=== PATIENT | male | born 1960 | race Caucasian/White ===

== ENCOUNTER → 2017-08-31 | Outpatient (CLI) | payer OTHER, BC ==
[2017-08-31 09:28] LABS: BASO # 0.1 10^3/uL (0.0-0.2); BASO % 2.4 % (0.0-1.0); EOS # 0.2 10^3/uL (0.0-0.50); EOS % 3.1 % (0.0-3.0); IMMATURE GRANULOCYTE % 0.5 % (0-0); LYMPH # 1.8 10^3/uL (1.5-4.5); LYMPH % 31.1 % (24.0-44.0); MEAN CORPUSCULAR HEMOGLOBIN 30.1 pg (27.0-33.0); MEAN CORPUSCULAR HGB CONC 33.8 g/dl (32.0-36.5); MEAN CORPUSCULAR VOLUME 88.8 fl (80.0-96.0); MONO # 0.6 10^3/uL (0.0-0.8); MONO % 10.5 % (0.0-5.0); NEUTROPHILS # 3.1 10^3/uL (1.8-7.7); NEUTROPHILS % 52.4 % (36.0-66.0); PLATELET COUNT, AUTOMATED 226 10^3/uL (150-450); RED CELL DISTRIBUTION WIDTH 12.1 % (11.5-14.5); WHITE BLOOD COUNT 5.9 10^3/uL (4.0-10.0)
[2017-08-31 09:54] LABS: ALBUMIN 3.7 GM/DL (3.2-5.2); ALBUMIN/GLOBULIN RATIO 1.09 (1.00-1.93); ALKALINE PHOSPHATASE 59 U/L (45-117); ALT/SGPT 41 U/L (12-78); ANION GAP 6 MEQ/L (8-16); AST/SGOT 22 U/L (7-37); BILIRUBIN,TOTAL 0.6 MG/DL (0.2-1.0); BLOOD UREA NITROGEN 12 MG/DL (7-18); CALCIUM LEVEL 9.3 MG/DL (8.5-10.1); CARBON DIOXIDE LEVEL 31 MEQ/L (21-32); CHLORIDE LEVEL 101 MEQ/L (98-107); CHOLESTEROL LEVEL 153 MG/DL (<200); CREATININE FOR GFR 1.09 MG/DL (0.70-1.30); GLOMERULAR FILTRATION RATE > 60.0 (>56); GLUCOSE, FASTING 133 MG/DL (70-105); POTASSIUM SERUM 4.5 MEQ/L (3.5-5.1); SODIUM LEVEL 138 MEQ/L (136-145); TOTAL PROTEIN 7.1 GM/DL (6.4-8.2); TRIGLYCERIDES LEVEL 317 MG/DL (<150)
== END ==
LOC: M WUC 08:13
PROVIDERS: ATTEND Family Medicine
DX: E11.65 Type 2 diabetes mellitus with hyperglycemia (principal)

== ENCOUNTER → 2018-03-16 | Outpatient (CLI) | payer OTHER, BC ==
[2018-03-16 09:27] LABS: ALBUMIN 3.6 GM/DL (3.2-5.2); ALBUMIN/GLOBULIN RATIO 1.06 (1.00-1.93); ALKALINE PHOSPHATASE 65 U/L (45-117); ALT/SGPT 50 U/L (12-78); ANION GAP 5 MEQ/L (8-16); AST/SGOT 25 U/L (7-37); BILIRUBIN,TOTAL 0.5 MG/DL (0.2-1.0); BLOOD UREA NITROGEN 14 MG/DL (7-18); CALCIUM LEVEL 8.6 MG/DL (8.5-10.1); CARBON DIOXIDE LEVEL 29 MEQ/L (21-32); CHLORIDE LEVEL 108 MEQ/L (98-107); CHOLESTEROL LEVEL 128 MG/DL (<200); CHOLESTEROL RISK RATIO 4.129 (<5); CREATININE FOR GFR 0.91 MG/DL (0.70-1.30); GLOMERULAR FILTRATION RATE > 60.0 (>56); GLUCOSE, FASTING 128 MG/DL (70-100); HDL CHOLESTEROL 31 MG/DL (>40); LDL CHOLESTEROL 38.4 MG/DL (<100); NON-HDL-C 97 MG/DL; POTASSIUM SERUM 4.6 MEQ/L (3.5-5.1); SODIUM LEVEL 142 MEQ/L (136-145); TRIGLYCERIDES LEVEL 293 MG/DL (<150)
[2018-03-16 10:21] LABS: ESTIMATED AVERAGE GLUCOSE 143 MG/DL (60-110); HEMOGLOBIN A1c 6.6 %
[2018-03-16 11:20] LABS: MALB URINE SIEMENS 16.2 MG/L
== END ==
LOC: M WUC 08:23
DX: E11.69 Type 2 diabetes mellitus with other specified complication (principal)

== ENCOUNTER → 2018-04-11 | Outpatient (CLI) | payer BC, OTHER | LOC: M RAD 08:45 | DX: F17.210 Nicotine dependence, cigarettes, uncomplicated (principal); Z12.2 Encounter for screening for malignant neoplasm of respiratory organs | CPT/HCPCS: G0297 ==

== ENCOUNTER → 2018-09-21 | Outpatient (CLI) | payer OTHER, BC ==
[2018-09-21 11:18] LABS: ESTIMATED AVERAGE GLUCOSE 154 MG/DL (60-110)
[2018-09-21 11:24] LABS: ALBUMIN 3.8 GM/DL (3.2-5.2); ALBUMIN/GLOBULIN RATIO 1.15 (1.00-1.93); ALKALINE PHOSPHATASE 68 U/L (45-117); ALT/SGPT 43 U/L (12-78); ANION GAP 10 MEQ/L (8-16); AST/SGOT 21 U/L (7-37); BILIRUBIN,TOTAL 0.5 MG/DL (0.2-1.0); BLOOD UREA NITROGEN 17 MG/DL (7-18); CALCIUM LEVEL 9.1 MG/DL (8.8-10.2); CARBON DIOXIDE LEVEL 28 MEQ/L (21-32); CHLORIDE LEVEL 102 MEQ/L (98-107); GLOMERULAR FILTRATION RATE > 60.0 (>49); GLUCOSE, FASTING 125 MG/DL (70-100); POTASSIUM SERUM 4.6 MEQ/L (3.5-5.1); SODIUM LEVEL 140 MEQ/L (136-145); TOTAL PROTEIN 7.1 GM/DL (6.4-8.2)
== END ==
LOC: M WUC 09:31
DX: E11.69 Type 2 diabetes mellitus with other specified complication (principal)
CPT/HCPCS: 80053

== ENCOUNTER → 2018-12-18 | Outpatient (CLI) | payer BC, OTHER ==
--- NOTE | 2018-12-18 09:27 | REP ---
NONCONTRAST CHEST CT: HISTORY: Abnormal lung field findings. Comparison CT studies of the chest are reviewed from June 13, 2018 and April 11, 2018. CT FINDINGS: There are two small parenchymal calcifications in the left lobe of the thyroid unchanged. No mediastinal adenopathy is seen. There are granulomatous calcified clint residuals in the right hilus. A calcified granuloma is seen in the right upper lobe of the lung. These findings are unchanged. There is moderate diffuse fatty infiltration of the liver. This is unchanged. No adrenal lesion is seen. Visualized upper abdominal structures are otherwise unremarkable. No pleural or pericardial effusion is seen. No bony abnormality is appreciated. There is mild subpleural fibrosis pattern in the right lower lobe posteriorly and medially. This is less prominent than on the June 13, 2018 study and somewhat improved compared to the April 04, 2018 exam as well. There are scattered stable tiny nodules in the upper lobes bilaterally unchanged. No new pulmonary nodule is appreciated. No progressive change is appreciated. IMPRESSION: Patchy subpleural interstitial and ground-glass changes in the right lower lobe appear improved. Granulomatous calcific residuals. Stable tiny nodular opacities. Moderate diffuse fatty infiltration of the liver. Electronically Signed by Jeff Fajardo MD 12/18/2018 11:09 A
== END ==
LOC: M RAD 06:47
PROVIDERS: ATTEND Internal Medicine Pulmonary Disease
DX: R91.8 Other nonspecific abnormal finding of lung field (principal)

== ENCOUNTER → 2019-01-01 | Outpatient (CLI) | payer OTHER, BC ==
[2019-01-01 17:03] LABS: BLOOD UREA NITROGEN 11 MG/DL (7-18); CALCIUM LEVEL 8.8 MG/DL (8.8-10.2); CARBON DIOXIDE LEVEL 30 MEQ/L (21-32); CHLORIDE LEVEL 103 MEQ/L (98-107); CREATININE FOR GFR 0.91 MG/DL (0.70-1.30); GLOMERULAR FILTRATION RATE > 60.0 (>49); GLUCOSE, FASTING 96 MG/DL (70-100); POTASSIUM SERUM 4.2 MEQ/L (3.5-5.1); SODIUM LEVEL 139 MEQ/L (136-145)
[2019-01-01 17:34] LABS: HEMOGLOBIN A1c 6.4 %
== END ==
LOC: M WUC 14:29
PROVIDERS: ATTEND Family Medicine
DX: E11.69 Type 2 diabetes mellitus with other specified complication (principal)

== ENCOUNTER → 2019-06-27 | Outpatient (CLI) | payer OTHER, BC ==
[2019-06-27 12:12] LABS: BASO # 0.2 10^3/uL (0.0-0.2); BASO % 2.6 % (0.0-1.0); EOS # 0.2 10^3/uL (0.0-0.5); HEMATOCRIT 45.1 % (42.0-52.0); HEMOGLOBIN 15.1 g/dl (13.5-17.5); LYMPH # 1.6 10^3/uL (1.5-5.0); LYMPH % 28.8 % (24.0-44.0); MEAN CORPUSCULAR HEMOGLOBIN 29.9 pg (27.0-33.0); MEAN CORPUSCULAR HGB CONC 33.5 g/dl (32.0-36.5); MEAN CORPUSCULAR VOLUME 89.3 fl (80.0-96.0); MONO # 0.6 10^3/uL (0.0-0.8); MONO % 10.4 % (0.0-5.0); NEUTROPHILS # 3.1 10^3/uL (1.5-8.5); NEUTROPHILS % 54.8 % (36.0-66.0); PLATELET COUNT, AUTOMATED 240 10^3/uL (150-450); RED BLOOD COUNT 5.05 10^6/uL (4.30-6.10); WHITE BLOOD COUNT 5.7 10^3/uL (4.0-10.0)
[2019-06-27 12:22] LABS: ALBUMIN 3.7 GM/DL (3.2-5.2); ALT/SGPT 41 U/L (12-78); BILIRUBIN,TOTAL 0.6 MG/DL (0.2-1.0); BLOOD UREA NITROGEN 11 MG/DL (7-18); CALCIUM LEVEL 9.4 MG/DL (8.8-10.2); CARBON DIOXIDE LEVEL 29 MEQ/L (21-32); CHLORIDE LEVEL 105 MEQ/L (98-107); CHOLESTEROL LEVEL 120 MG/DL (<200); CREATININE FOR GFR 1.02 MG/DL (0.70-1.30); GLOMERULAR FILTRATION RATE > 60.0 (>49); GLUCOSE, FASTING 120 MG/DL (70-100); HDL CHOLESTEROL 32 MG/DL (>40); LDL CHOLESTEROL 36 MG/DL (<100); NON-HDL-C 88 MG/DL; POTASSIUM SERUM 4.7 MEQ/L (3.5-5.1); SODIUM LEVEL 143 MEQ/L (136-145); TOTAL PROTEIN 6.9 GM/DL (6.4-8.2); TRIGLYCERIDES LEVEL 261 MG/DL (<150)
[2019-06-27 12:50] LABS: MALB URINE SIEMENS 30.2 MG/L; MAU/CREAT RATIO 10.1 MCG/MG (0.0-30.0)
[2019-06-27 13:20] LABS: HEMOGLOBIN A1c 6.9 %
== END ==
LOC: M WUC 08:10
PROVIDERS: ATTEND Family Medicine
DX: E11.69 Type 2 diabetes mellitus with other specified complication (principal)

== ENCOUNTER → 2019-06-27 | Outpatient (CLI) | payer BC, OTHER ==
--- NOTE | 2019-06-27 13:49 | REP ---
CT CHEST WITHOUT CONTRAST: HISTORY: "Other nonspecific abnormal finding of the lung field". COMPARISON STUDY: CT studies of the chest are reviewed from December 18, 2018, June 13, 2018, and April 11, 2018. CT FINDINGS: There is moderate fatty infiltration of the liver again seen essentially diffusely. No adrenal lesion is seen. The visualized upper abdominal structures are otherwise unremarkable. There is no evidence of pleural or pericardial effusion. There is a granulomatous calcification again noted in the right upper lobe and there is a granulomatous lymph node calcification in the right hilus unchanged. There is a tiny stable 4 mm nodular opacity in the left upper lobe on page 24 of 118 in series to one of today's study. There is another tiny 4 mm nodular opacity in the left upper lobe on page 46 unchanged. There is an elongate paraspinal ground-glass opacity/fibrosis pattern in the posterior medial the right lower lobe, medial basal segment. This is improved from the original CT study of April 11, 2018 and with respect to the May 2018 study. These are associated with fairly prominent right lateral and anterolateral paravertebral osteophytes and may be secondary fibrosis. There is no solid component. Exam is otherwise unremarkable. IMPRESSION: Stable pulmonary parenchymal findings. Electronically Signed by Jeff Fajardo MD 06/27/2019 03:12 P
== END ==
LOC: M RAD 10:08
PROVIDERS: ATTEND Internal Medicine Pulmonary Disease
DX: R91.8 Other nonspecific abnormal finding of lung field (principal); K76.0 Fatty (change of) liver, not elsewhere classified

== ENCOUNTER → 2019-10-01 | Outpatient (CLI) | payer OTHER, BC ==
[2019-10-01 13:07] LABS: HEMOGLOBIN A1c 6.8 %
== END ==
LOC: M WUC 09:13
PROVIDERS: ATTEND Family Medicine
DX: E11.69 Type 2 diabetes mellitus with other specified complication (principal)

== ENCOUNTER 2019-11-21 09:57 | Day surgery (SDC) | payer BC, OTHER ==
[~2019-11-21] VITALS: Ht 175.3 cm; Wt 122.5 kg
[~2019-11-21 09:57] MED LIST: AMLO5TAB6 PO; LISI-538 PO; METF-791 PO; METO1TAB33 PO; NS 1,000 ML IV ONE; SIMV20TA22 PO
[2019-11-21] MEDS ORDERED: propofoL 200 MG/20 ML VIAL As Ordered ONE ×2 (10:54→11:17)
[2019-11-21] MEDS ORDERED: LIDOCAINE 2% INJ 100 MG/5 ML SDV (FOR ANES.) As Ordered ONE (10:54)
--- NOTE | 2019-11-21 11:21 | ROOR ---
Patient Name: Roddy Bill Procedure Date: 11/21/2019 10:50 AM Date of : 1960 Age: 59 Room: [facility] Gender: Male Note Status: Finalized Procedure: Colonoscopy Indications: High risk colon cancer surveillance: Personal history of colonic polyps Providers: Israel Le Jr, MD Referring MD: Lisha Ortez MD Requesting Provider: Medicines: Propofol per Anesthesia Complications: No immediate complications. Procedure: Pre-Anesthesia Assessment: - Prior to the procedure, a History and Physical was performed, and patient medications and allergies were reviewed. The patient is competent. The risks and benefits of the procedure and the sedation options and risks were discussed with the patient. All questions were answered and informed consent was obtained. Patient identification and proposed procedure were verified by the physician and the nurse in the pre-procedure area and in the procedure room. Mental Status Examination: alert and oriented. Airway Examination: normal oropharyngeal airway and neck mobility. Respiratory Examination: clear to auscultation. CV Examination: normal. ASA Grade Assessment: II - A patient with mild systemic disease. After reviewing the risks and benefits, the patient was deemed in satisfactory condition to undergo the procedure. The anesthesia plan was to use moderate sedation / analgesia (conscious sedation). Immediately prior to administration of medications, the patient was re-assessed for adequacy to receive sedatives. The heart rate, respiratory rate, oxygen saturations, blood pressure, adequacy of pulmonary ventilation, and response to care were monitored throughout the procedure. The physical status of the patient was re-assessed after the procedure. The Colonoscope was introduced through the anus and advanced to the cecum, identified by appendiceal orifice and ileocecal valve. The colonoscopy was performed without difficulty. The patient tolerated the procedure well. The quality of the bowel preparation was adequate. Findings: The cecum, appendiceal orifice and ileocecal valve appeared normal. Seven polyps were found in the rectum, sigmoid colon, descending colon and transverse colon. The polyps were small in size. These polyps were removed with a hot snare. Resection was complete, but the polyp tissue was only partially retrieved. Multiple small and large-mouthed diverticula were found in the sigmoid colon. Impression: - The cecum, appendiceal orifice and ileocecal valve are normal. - Seven small polyps in the rectum, in the sigmoid colon, in the descending colon and in the transverse colon, removed with a hot snare. Complete resection. Partial retrieval. - Diverticulosis in the sigmoid colon. Recommendation: - Discharge patient to home (ambulatory). - Repeat colonoscopy in 5 years for surveillance. Israel Le MD Israel Le Jr, MD 11/21/2019 11:20:45 AM Electronically signed by Israel Le Jr, MD Number of Addenda: 0 Note Initiated On: 11/21/2019 10:50 AM Estimated Blood Loss: Estimated blood loss: none.
[2019-11-21 12:35] VITALS: BP 190/95
== END 2019-11-21 13:17 | disposition home or self-care (01) ==
LOC: M OPP 09:57
PROVIDERS: ATTEND Surgery
DX: Z12.11 Encounter for screening for malignant neoplasm of colon (principal); Z86.010 Personal history of colon polyps; D12.5 Benign neoplasm of sigmoid colon; D12.4 Benign neoplasm of descending colon; D12.3 Benign neoplasm of transverse colon; K57.30 Diverticulosis of large intestine without perforation or abscess without bleeding; I10 Essential (primary) hypertension; E11.9 Type 2 diabetes mellitus without complications; E78.00 Pure hypercholesterolemia, unspecified; Z79.899 Other long term (current) drug therapy; Z79.84 Long term (current) use of oral hypoglycemic drugs; Z87.891 Personal history of nicotine dependence

== ENCOUNTER → 2020-02-25 | Outpatient (CLI) | payer BC, OTHER ==
[~2020-02-25] MED LIST changes: +AMLO1TAB24 PO; -AMLO5TAB6 PO; -LISI-538 PO; +LISI20TA33 PO; -METF-791 PO; +METF-838 PO; -NS 1,000 ML IV ONE
[2020-02-25 17:46] LABS: HEMOGLOBIN A1c 7.3 %
== END ==
LOC: M WUC 14:47
PROVIDERS: ATTEND Family Medicine
DX: E11.69 Type 2 diabetes mellitus with other specified complication (principal)

== ENCOUNTER → 2020-06-05 | Outpatient (CLI) | payer BC, OTHER ==
[~2020-06-05] MED LIST changes: +LISI-538 PO; -LISI20TA33 PO
[2020-06-05 17:46] LABS: HEMOGLOBIN A1c 6.8 %
== END ==
LOC: M WUC 14:38
PROVIDERS: ATTEND Family Medicine
DX: E11.69 Type 2 diabetes mellitus with other specified complication (principal)

== ENCOUNTER → 2020-12-03 | Outpatient (CLI) | payer BC, OTHER ==
[~2020-12-03] MED LIST changes: -LISI-538 PO; +LISI20TA33 PO
[2020-12-03 11:08] LABS: ALBUMIN 3.8 GM/DL (3.2-5.2); ALT/SGPT 45 U/L (12-78); BILIRUBIN,TOTAL 0.5 MG/DL (0.2-1.0); BLOOD UREA NITROGEN 14 MG/DL (7-18); CALCIUM LEVEL 9.1 MG/DL (8.8-10.2); CARBON DIOXIDE LEVEL 31 MEQ/L (21-32); CHLORIDE LEVEL 105 MEQ/L (98-107); CHOLESTEROL LEVEL 154 MG/DL (<200); CHOLESTEROL RISK RATIO 4.052 (<5); CREATININE FOR GFR 1.01 MG/DL (0.70-1.30); GLOMERULAR FILTRATION RATE > 60.0 (>49); GLUCOSE, FASTING 143 MG/DL (70-100); HDL CHOLESTEROL 38 MG/DL (>40); LDL CHOLESTEROL 69 MG/DL (<100); NON-HDL-C 116 MG/DL; SODIUM LEVEL 142 MEQ/L (136-145); TOTAL PROTEIN 7.1 GM/DL (6.4-8.2); TRIGLYCERIDES LEVEL 237 MG/DL (<150)
[2020-12-03 11:28] LABS: HEMOGLOBIN A1c 6.3 %
== END ==
LOC: M WUC 08:17
PROVIDERS: ATTEND Family Medicine
DX: E11.69 Type 2 diabetes mellitus with other specified complication (principal)

== ENCOUNTER → 2020-12-09 | Outpatient (REF) | payer OTHER ==
[2020-12-09 19:35] LABS: MALB URINE SIEMENS 9.3 MG/L; MAU/CREAT RATIO 6.1 MCG/MG (0.0-30.0)
== END ==
LOC: M LAB REF 17:45
PROVIDERS: ATTEND Family Medicine
DX: E11.69 Type 2 diabetes mellitus with other specified complication (principal)

== ENCOUNTER → 2021-06-16 | Outpatient (CLI) | payer OTHER ==
[2021-06-16 19:51] LABS: BLOOD UREA NITROGEN 12 MG/DL (7-18); CALCIUM LEVEL 9.4 MG/DL (8.8-10.2); CARBON DIOXIDE LEVEL 29 MEQ/L (21-32); CHLORIDE LEVEL 108 MEQ/L (98-107); GLOMERULAR FILTRATION RATE > 60.0 (>49); GLUCOSE, FASTING 126 MG/DL (70-100); POTASSIUM SERUM 3.7 MEQ/L (3.5-5.1); SODIUM LEVEL 142 MEQ/L (136-145)
[2021-06-16 20:50] LABS: HEMOGLOBIN A1c 6.3 %
== END ==
LOC: M WUC 15:36
PROVIDERS: ATTEND Family Medicine
DX: E11.69 Type 2 diabetes mellitus with other specified complication (principal)

== ENCOUNTER → 2022-03-17 | Outpatient (CLI) | payer BC ==
[2022-03-17 10:28] LABS: BASO # 0.1 10^3/uL (0.0-0.2); BASO % 2.3 % (0.0-1.0); EOS # 0.2 10^3/uL (0.0-0.5); EOS % 2.8 % (0.0-3.0); HEMATOCRIT 46.8 % (42.0-52.0); HEMOGLOBIN 15.5 g/dl (13.5-17.5); LYMPH # 1.7 10^3/uL (1.5-5.0); LYMPH % 28.2 % (24.0-44.0); MEAN CORPUSCULAR HEMOGLOBIN 30.5 pg (27.0-33.0); MEAN CORPUSCULAR HGB CONC 33.1 g/dl (32.0-36.5); MEAN CORPUSCULAR VOLUME 91.9 fl (80.0-96.0); MONO # 0.7 10^3/uL (0.0-0.8); MONO % 11.5 % (2.0-8.0); NEUTROPHILS # 3.3 10^3/uL (1.5-8.5); NEUTROPHILS % 54.1 % (36.0-66.0); PLATELET COUNT, AUTOMATED 221 10^3/uL (150-450); RED BLOOD COUNT 5.09 10^6/uL (4.30-6.10); WHITE BLOOD COUNT 6.2 10^3/uL (4.0-10.0)
[2022-03-17 11:40] LABS: ALBUMIN 3.5 GM/DL (3.2-5.2); ALT/SGPT 43 U/L (12-78); BILIRUBIN,TOTAL 0.6 MG/DL (0.2-1.0); BLOOD UREA NITROGEN 13 MG/DL (7-18); CALCIUM LEVEL 9.4 MG/DL (8.8-10.2); CARBON DIOXIDE LEVEL 30 MEQ/L (21-32); CHLORIDE LEVEL 108 MEQ/L (98-107); CHOLESTEROL LEVEL 154 MG/DL (<200); CHOLESTEROL RISK RATIO 4.812 (<5); CREATININE FOR GFR 0.98 MG/DL (0.70-1.30); GLOMERULAR FILTRATION RATE > 60.0 (>49); GLUCOSE, FASTING 144 MG/DL (70-100); HDL CHOLESTEROL 32 MG/DL (>40); LDL CHOLESTEROL 69 MG/DL (<100); NON-HDL-C 122 MG/DL; POTASSIUM SERUM 4.3 MEQ/L (3.5-5.1); SODIUM LEVEL 142 MEQ/L (136-145); TOTAL PROTEIN 6.8 GM/DL (6.4-8.2); TRIGLYCERIDES LEVEL 267 MG/DL (<150)
[2022-03-17 12:01] LABS: HEMOGLOBIN A1c 6.3 %
== END ==
LOC: M WUC 08:32
PROVIDERS: ATTEND Family Medicine
DX: I10 Essential (primary) hypertension (principal)

== ENCOUNTER → 2022-10-24 | Outpatient (CLI) | payer BC ==
[2022-10-24 16:38] LABS: BASO # 0.2 10^3/uL (0.0-0.2); BASO % 2.2 % (0.0-1.0); EOS # 0.3 10^3/uL (0.0-0.5); EOS % 3.1 % (0.0-3.0); HEMATOCRIT 45.8 % (42.0-52.0); HEMOGLOBIN 15.3 g/dl (13.5-17.5); LYMPH # 2.3 10^3/uL (1.5-5.0); LYMPH % 27.8 % (24.0-44.0); MEAN CORPUSCULAR HEMOGLOBIN 30.2 pg (27.0-33.0); MEAN CORPUSCULAR HGB CONC 33.4 g/dl (32.0-36.5); MEAN CORPUSCULAR VOLUME 90.5 fl (80.0-96.0); MONO # 0.9 10^3/uL (0.0-0.8); MONO % 10.8 % (2.0-8.0); NEUTROPHILS # 4.6 10^3/uL (1.5-8.5); NEUTROPHILS % 55.9 % (36.0-66.0); PLATELET COUNT, AUTOMATED 245 10^3/uL (150-450); RED BLOOD COUNT 5.06 10^6/uL (4.30-6.10); WHITE BLOOD COUNT 8.2 10^3/uL (4.0-10.0)
[2022-10-24 17:06] LABS: ALBUMIN 3.7 G/DL (3.2-5.2); ALKALINE PHOSPHATASE 77 U/L (46-116); ALT/SGPT 39 U/L (7.0-40); AST/SGOT 26 U/L (<34); BILIRUBIN,TOTAL 0.3 MG/DL (0.3-1.2); BLOOD UREA NITROGEN 15 MG/DL (9-23); CALCIUM LEVEL 9.4 MG/DL (8.3-10.6); CARBON DIOXIDE LEVEL 29 MMOL/L (20-31); CHLORIDE LEVEL 102 MMOL/L (98-107); CHOLESTEROL LEVEL 152 MG/DL (<200); CHOLESTEROL RISK RATIO 4.93 (<5); CREATININE FOR GFR 0.82 MG/DL (0.70-1.30); GLOMERULAR FILTRATION RATE > 60.0 (>49); GLUCOSE, FASTING 189 MG/DL (74-106); HDL CHOLESTEROL 30.8 MG/DL (>40); NON-HDL-C 121 MG/DL; POTASSIUM SERUM 4.1 MMOL/L (3.5-5.1); SODIUM LEVEL 140 MMOL/L (136-145); TOTAL PROTEIN 6.7 G/DL (5.7-8.2); TRIGLYCERIDES LEVEL 616 MG/DL (<150)
[2022-10-24 17:07] LABS: CREATININE, URINE 160.2 MG/DL; MAU/CREAT RATIO 3.1 MCG/MG (0.0-30.0)
[2022-10-24 17:45] LABS: HEMOGLOBIN A1c 6.5 % (4.0-6.0)
== END ==
LOC: M WUC 13:57
PROVIDERS: ATTEND Family Medicine
DX: E11.69 Type 2 diabetes mellitus with other specified complication (principal)

== ENCOUNTER → 2023-04-24 | Outpatient (CLI) | payer BC ==
[2023-04-24 17:06] LABS: HEMOGLOBIN A1c 7.1 % (4.0-6.0)
== END ==
LOC: M WUC 13:43
PROVIDERS: ATTEND Family Medicine
DX: E11.69 Type 2 diabetes mellitus with other specified complication (principal)

== ENCOUNTER → 2023-04-27 | Outpatient (CLI) | payer BC | LOC: M WUC 08:50 | PROVIDERS: ATTEND Registered Nurse | DX: M25.532 Pain in left wrist (principal) ==

== ENCOUNTER → 2023-07-27 | Outpatient (CLI) | payer MEDICARE, BC, OTHER ==
[2023-07-27 11:21] LABS: HEMOGLOBIN A1c 6.8 % (4.0-6.0)
[2023-07-27 11:30] LABS: ALBUMIN 3.7 G/DL (3.2-5.2); ALKALINE PHOSPHATASE 61 U/L (46-116); ALT/SGPT 24 U/L (7.0-40); AST/SGOT 18 U/L (<34); BILIRUBIN,TOTAL 0.5 MG/DL (0.3-1.2); BLOOD UREA NITROGEN 12 MG/DL (9-23); CALCIUM LEVEL 9.3 MG/DL (8.3-10.6); CARBON DIOXIDE LEVEL 32 MMOL/L (20-31); CHLORIDE LEVEL 103 MMOL/L (98-107); CHOLESTEROL LEVEL 137 MG/DL (<200); CHOLESTEROL RISK RATIO 3.72 (<5); CREATININE FOR GFR 0.84 MG/DL (0.70-1.30); GLOMERULAR FILTRATION RATE > 60.0 (>49); GLUCOSE, FASTING 140 MG/DL (74-106); HDL CHOLESTEROL 36.8 MG/DL (>40); NON-HDL-C 100.2 MG/DL; POTASSIUM SERUM 4.1 MMOL/L (3.5-5.1); SODIUM LEVEL 143 MMOL/L (136-145); TOTAL PROTEIN 6.8 G/DL (5.7-8.2); TRIGLYCERIDES LEVEL 236 MG/DL (<150)
== END ==
LOC: M WUC 08:31
PROVIDERS: ATTEND Registered Nurse
DX: E78.2 Mixed hyperlipidemia (principal); E11.69 Type 2 diabetes mellitus with other specified complication

== ENCOUNTER → 2023-08-08 | Outpatient (REF) | payer BC, OTHER, MEDICARE ==
[2023-08-10 23:07] LABS: PSA TOTAL 1.8 ng/mL (0.0-4.0)
== END ==
LOC: M LABWUC 16:24
PROVIDERS: ATTEND Registered Nurse
DX: Z00.00 Encounter for general adult medical examination without abnormal findings (principal)

== ENCOUNTER 2023-11-09 06:28 | Day surgery (SDC) | payer MEDICARE, BC, OTHER ==
[~2023-11-09] VITALS: Ht 177.8 cm; Wt 121.1 kg
[~2023-11-09 06:28] MED LIST changes: +NS 1,000 ML IV ONE; +PHEN26CR PR; +SILD100T PO
[2023-11-09] MEDS ORDERED: propofoL 200 MG/20 ML VIAL As Ordered ONE ×2 (06:56→08:01)
[2023-11-09] MEDS ORDERED: LIDOCAINE 2% 100MG/5ML SDV (FOR ANES.) As Ordered ONE (06:56)
[2023-11-09] MEDS ORDERED: hydrALAZINE 20MG/ML 1ML VIAL As Ordered ONE (07:32)
[2023-11-09 08:37] VITALS: BP 108/53; TEMP 97.9; O2SAT 96
== END 2023-11-09 09:33 | disposition home or self-care (01) ==
LOC: M OPP 06:28
PROVIDERS: ATTEND Surgery
DX: Z12.11 Encounter for screening for malignant neoplasm of colon (principal); Z86.010 Personal history of colon polyps; D12.6 Benign neoplasm of colon, unspecified; Z87.891 Personal history of nicotine dependence; E11.9 Type 2 diabetes mellitus without complications; Z79.02 Long term (current) use of antithrombotics/antiplatelets; Z79.84 Long term (current) use of oral hypoglycemic drugs; Z79.899 Other long term (current) drug therapy
CPT/HCPCS: 45385; 88305; J0360

== ENCOUNTER → 2024-01-09 | Outpatient (REF) | payer MEDICARE, BC, OTHER ==
[~2024-01-09] MED LIST changes: -NS 1,000 ML IV ONE
[2024-01-09 19:09] LABS: CREATININE, URINE 138.1 MG/DL; MAU/CREAT RATIO 227.3 MCG/MG (0.0-30.0)
== END ==
LOC: M LAB REF 17:24
PROVIDERS: ATTEND Registered Nurse
DX: R31.0 Gross hematuria (principal); E11.69 Type 2 diabetes mellitus with other specified complication

== ENCOUNTER → 2024-01-12 | Outpatient (CLI) | payer MEDICARE, BC, OTHER ==
[2024-01-12 09:47] LABS: BASO # 0.2 10^3/uL (0.0-0.2); BASO % 2.4 % (0.0-1.0); EOS # 0.4 10^3/uL (0.0-0.5); EOS % 4.7 % (0.0-3.0); HEMATOCRIT 45.6 % (42.0-52.0); HEMOGLOBIN 15.1 g/dl (13.5-17.5); LYMPH # 2.1 10^3/uL (1.5-5.0); LYMPH % 25.7 % (24.0-44.0); MEAN CORPUSCULAR HEMOGLOBIN 29.8 pg (27.0-33.0); MEAN CORPUSCULAR HGB CONC 33.1 g/dl (32.0-36.5); MEAN CORPUSCULAR VOLUME 90.1 fl (80.0-96.0); MONO # 0.8 10^3/uL (0.0-0.8); MONO % 10.2 % (2.0-8.0); NEUTROPHILS # 4.5 10^3/uL (1.5-8.5); NEUTROPHILS % 56.8 % (36.0-66.0); PLATELET COUNT, AUTOMATED 256 10^3/uL (150-450); RED BLOOD COUNT 5.06 10^6/uL (4.30-6.10)
[2024-01-12 10:08] LABS: HEMOGLOBIN A1c 6.7 % (4.0-6.0)
[2024-01-12 10:21] LABS: ALBUMIN 3.7 G/DL (3.2-5.2); ALKALINE PHOSPHATASE 60 U/L (46-116); ALT/SGPT 26 U/L (7.0-40); AST/SGOT 15 U/L (<34); BILIRUBIN,TOTAL 0.7 MG/DL (0.3-1.2); BLOOD UREA NITROGEN 15 MG/DL (9-23); CALCIUM LEVEL 9.3 MG/DL (8.3-10.6); CARBON DIOXIDE LEVEL 32 MMOL/L (20-31); CHLORIDE LEVEL 106 MMOL/L (98-107); CHOLESTEROL LEVEL 136 MG/DL (<200); CHOLESTEROL RISK RATIO 3.84 (<5); GLOMERULAR FILTRATION RATE > 60.0 (>49); GLUCOSE, FASTING 135 MG/DL (74-106); HDL CHOLESTEROL 35.4 MG/DL (>40); NON-HDL-C 100.6 MG/DL; POTASSIUM SERUM 4.4 MMOL/L (3.5-5.1); SODIUM LEVEL 141 MMOL/L (136-145); TOTAL PROTEIN 6.8 G/DL (5.7-8.2); TRIGLYCERIDES LEVEL 223 MG/DL (<150)
== END ==
LOC: M WUC 08:02
PROVIDERS: ATTEND Registered Nurse
DX: I10 Essential (primary) hypertension (principal); E78.2 Mixed hyperlipidemia; E11.69 Type 2 diabetes mellitus with other specified complication

== ENCOUNTER → 2024-01-18 | Outpatient (REF) | payer MEDICARE, OTHER ==
[2024-01-18 13:32] LABS: APPEARANCE, URINE HAZY (CLEAR); BACTERIA, URINE AUTO 1+ (NEGATIVE); BILIRUBIN, URINE AUTO NEGATIVE (NEGATIVE); BLOOD, URINE BLOOD 3+ (NEGATIVE); COLOR, URINE YELLOW (YELLOW); GLUCOSE, URINE (UA) AUTO NEGATIVE (NEGATIVE); KETONE, URINE AUTO NEGATIVE (NEGATIVE); LEUKOCYTE ESTERASE, URINE AUTO TRACE (NEGATIVE); MUCUS, URINE SMALL (NEGATIVE); NITRITE, URINE AUTO NEGATIVE (NEGATIVE); PROTEIN, URINE AUTO 2+ mg/dL (NEGATIVE); RBC, URINE AUTO TNTC /HPF (0-3); SPECIFIC GRAVITY URINE AUTO 1.018 (1.002-1.035); SQUAMOUS EPITHELIAL CELL UR AU 0 /HPF (0-6); UROBILINOGEN, URINE AUTO 0.2 mg/dL (0.0-2.0); WBC, URINE AUTO 25 /HPF (0-3)
== END ==
LOC: M SMT 12:34
PROVIDERS: ATTEND Nurse Practitioner Family
DX: R31.0 Gross hematuria (principal)

== ENCOUNTER → 2024-01-26 | Outpatient (REF) | payer MEDICARE, BC ==
[2024-01-26 18:46] LABS: BLOOD UREA NITROGEN 15 MG/DL (9-23); CALCIUM LEVEL 9.6 MG/DL (8.3-10.6); CARBON DIOXIDE LEVEL 30 MMOL/L (20-31); CHLORIDE LEVEL 103 MMOL/L (98-107); CREATININE FOR GFR 1.01 MG/DL (0.70-1.30); GLOMERULAR FILTRATION RATE > 60.0 (>49); GLUCOSE, FASTING 114 MG/DL (74-106); POTASSIUM SERUM 4.1 MMOL/L (3.5-5.1); SODIUM LEVEL 138 MMOL/L (136-145)
== END ==
LOC: M LABWUC 17:15
PROVIDERS: ATTEND Nurse Practitioner Family
DX: R31.0 Gross hematuria (principal)

== ENCOUNTER → 2024-01-30 | Outpatient (CLI) | payer MEDICARE, BC ==
[~2024-01-30] MED LIST changes: +ISOVUE-370 76% 100ML VIAL ONE
== END ==
LOC: M PLAIMG 09:33
PROVIDERS: ATTEND Nurse Practitioner Family
DX: K76.0 Fatty (change of) liver, not elsewhere classified (principal); N28.1 Cyst of kidney, acquired; N40.0 Benign prostatic hyperplasia without lower urinary tract symptoms; R31.0 Gross hematuria
CPT/HCPCS: 74178; Q9967

== ENCOUNTER → 2024-02-28 | Outpatient (CLI) | payer MEDICARE, BC ==
[~2024-02-28] MED LIST changes: +AMLO1TAB25 PO; -ISOVUE-370 76% 100ML VIAL ONE; +LEVO1TAB40 PO; +TADA20TA PO; +TAMS1CAP17 PO
[2024-02-28 11:42] LABS: BASO # 0.2 10^3/uL (0.0-0.2); BASO % 2.2 % (0.0-1.0); EOS # 0.4 10^3/uL (0.0-0.5); EOS % 4.8 % (0.0-3.0); HEMATOCRIT 39.1 % (42.0-52.0); HEMOGLOBIN 12.8 g/dl (13.5-17.5); LYMPH # 1.7 10^3/uL (1.5-5.0); LYMPH % 19.1 % (24.0-44.0); MEAN CORPUSCULAR HGB CONC 32.7 g/dl (32.0-36.5); MEAN CORPUSCULAR VOLUME 88.5 fl (80.0-96.0); MONO # 0.8 10^3/uL (0.0-0.8); MONO % 8.9 % (2.0-8.0); NEUTROPHILS # 5.9 10^3/uL (1.5-8.5); NEUTROPHILS % 64.6 % (36.0-66.0); PLATELET COUNT, AUTOMATED 310 10^3/uL (150-450); RED BLOOD COUNT 4.42 10^6/uL (4.30-6.10); WHITE BLOOD COUNT 9.1 10^3/uL (4.0-10.0)
[2024-02-28 11:54] LABS: HEMOGLOBIN A1c 6.7 % (4.0-6.0)
[2024-02-28 11:58] LABS: ALBUMIN 3.2 G/DL (3.2-5.2); ALKALINE PHOSPHATASE 81 U/L (46-116); ALT/SGPT 27 U/L (7.0-40); AST/SGOT 15 U/L (<34); BILIRUBIN,TOTAL 0.5 MG/DL (0.3-1.2); BLOOD UREA NITROGEN 19 MG/DL (9-23); CALCIUM LEVEL 9.3 MG/DL (8.3-10.6); CARBON DIOXIDE LEVEL 28 MMOL/L (20-31); CHLORIDE LEVEL 106 MMOL/L (98-107); CHOLESTEROL LEVEL 153 MG/DL (<200); CHOLESTEROL RISK RATIO 4.56 (<5); CREATININE FOR GFR 1.16 MG/DL (0.70-1.30); GLOMERULAR FILTRATION RATE > 60.0 (>49); GLUCOSE, FASTING 134 MG/DL (74-106); HDL CHOLESTEROL 33.5 MG/DL (>40); LDL CHOLESTEROL 74.1 MG/DL (<100); NON-HDL-C 119.5 MG/DL; POTASSIUM SERUM 4.2 MMOL/L (3.5-5.1); SODIUM LEVEL 141 MMOL/L (136-145); TOTAL PROTEIN 6.5 G/DL (5.7-8.2); TRIGLYCERIDES LEVEL 227 MG/DL (<150)
== END ==
LOC: M WUC 08:16
PROVIDERS: ATTEND Registered Nurse
DX: E78.2 Mixed hyperlipidemia (principal); E11.69 Type 2 diabetes mellitus with other specified complication; I10 Essential (primary) hypertension

== ENCOUNTER → 2024-03-26 | Outpatient (CLI) | payer MEDICARE, BC ==
[~2024-03-26] MED LIST changes: +MAGN400T2 PO
== END ==
LOC: M PLARAD 08:20
PROVIDERS: ATTEND Internal Medicine Hematology & Oncology
DX: C67.8 Malignant neoplasm of overlapping sites of bladder (principal); R59.0 Localized enlarged lymph nodes; R91.8 Other nonspecific abnormal finding of lung field; Z96.0 Presence of urogenital implants; N13.30 Unspecified hydronephrosis; N40.0 Benign prostatic hyperplasia without lower urinary tract symptoms; C78.7 Secondary malignant neoplasm of liver and intrahepatic bile duct
CPT/HCPCS: 78815; A9552

== ENCOUNTER → 2024-04-03 | Outpatient (CLI) | payer MEDICARE, BC ==
[2024-04-03 17:03] LABS: INR 1.08; PROTHROMBIN TIME 13.6 SECONDS (12.5-14.5)
[2024-04-03 17:16] LABS: HEMATOCRIT 30.9 % (42.0-52.0); HEMOGLOBIN 9.7 g/dl (13.5-17.5); MEAN CORPUSCULAR HEMOGLOBIN 28.2 pg (27.0-33.0); MEAN CORPUSCULAR HGB CONC 31.4 g/dl (32.0-36.5); MEAN CORPUSCULAR VOLUME 89.8 fl (80.0-96.0); PLATELET COUNT, AUTOMATED 336 10^3/uL (150-450); RED BLOOD COUNT 3.44 10^6/uL (4.30-6.10); WHITE BLOOD COUNT 9.6 10^3/uL (4.0-10.0)
[2024-04-03 17:39] LABS: BILIRUBIN,TOTAL 0.3 MG/DL (0.3-1.2); CALCIUM LEVEL 9.4 MG/DL (8.3-10.6); CREATININE FOR GFR 5.73 MG/DL (0.70-1.30); GLOMERULAR FILTRATION RATE 10.6 (>49); POTASSIUM SERUM 5.3 MMOL/L (3.5-5.1); TOTAL PROTEIN 6.2 G/DL (5.7-8.2)
== END ==
LOC: M WUC 12:06
PROVIDERS: ATTEND Urology
DX: C67.9 Malignant neoplasm of bladder, unspecified (principal)

== ENCOUNTER → 2024-04-11 | Outpatient (CLI) | payer MEDICARE, BC ==
[~2024-04-11] MED LIST changes: +CEFD300CAP PO; +LIDOCAINE 1% MDV 20ML VIAL As Ordered ONE; +LIDOCAINE W/EPINEPHRINE 1% 20ML VIAL As Ordered ONE; +MIDAZOLAM INJ 2MG/2ML VIAL As Ordered ONE; +PERCOCET PO; +fentaNYL 100 MCG/2 ML INJECTION As Ordered ONE
[2024-04-11 15:42] VITALS: TEMP 97.5
[2024-04-11 17:28] VITALS: BP 168/83; O2SAT 93
== END ==
LOC: M IRPRO 15:22
PROVIDERS: ATTEND Internal Medicine Hematology & Oncology
DX: C67.9 Malignant neoplasm of bladder, unspecified (principal)
CPT/HCPCS: 36561; 99152; 99153; C1769; J2250; J3010

== ENCOUNTER 2024-04-12 14:28 | Outpatient (RCR) | payer MEDICARE, BC ==
[~2024-04-12 14:28] MED LIST changes: -LIDOCAINE 1% MDV 20ML VIAL As Ordered ONE; -LIDOCAINE W/EPINEPHRINE 1% 20ML VIAL As Ordered ONE; -MIDAZOLAM INJ 2MG/2ML VIAL As Ordered ONE; -fentaNYL 100 MCG/2 ML INJECTION As Ordered ONE
== END 2024-04-14 ==
LOC: M ONCR 14:28
PROVIDERS: ATTEND General Practice
DX: Z51.0 Encounter for antineoplastic radiation therapy (principal); C67.8 Malignant neoplasm of overlapping sites of bladder

== ENCOUNTER 2024-04-15 14:16 | Outpatient (RCR) | payer MEDICARE, BC ==
[2024-04-23] MEDS ORDERED: FURO40TA2 PO (09:58)
[2024-05-01] MEDS ORDERED: ONDA-84 PO (11:56)
[2024-05-01] MEDS ORDERED: PROC10TA5 PO (11:57)
[2024-05-01] MEDS ORDERED: POTA-150 PO (12:01)
[2024-05-15] MEDS ORDERED: LEVO25TA5 PO (12:00)
== END 2024-05-15 ==
LOC: M ONCR 14:16
PROVIDERS: ATTEND General Practice
DX: Z51.0 Encounter for antineoplastic radiation therapy (principal); C67.8 Malignant neoplasm of overlapping sites of bladder

== ENCOUNTER → 2024-06-03 | Outpatient (REF) | payer MEDICARE, BC, OTHER ==
[~2024-06-03] MED LIST changes: +FERR28TA PO; +FURO40TA2 PO; +LEVO25TA5 PO; +METO1TAB7 PO; +ONDA-284 PO; +ONDA-84 PO; +POTA-136 PO; +POTA-150 PO; +PROC10TA5 PO
== END ==
LOC: M SMT 16:58
PROVIDERS: ATTEND Urology
DX: Z96.0 Presence of urogenital implants (principal)

== ENCOUNTER 2024-06-10 08:45 | Day surgery (SDC) | payer MEDICARE, BC ==
[~2024-06-10] VITALS: Ht 177.8 cm; Wt 97.5 kg
[2024-06-10] MEDS ORDERED: LR 1,000 ML IV SCH (09:20)
[2024-06-10] MEDS ORDERED: LIDOCAINE 2% 100MG/5ML SDV (FOR ANES.) As Ordered ONE (09:42)
[2024-06-10] MEDS ORDERED: ONDANSETRON 4MG 2ML VIAL As Ordered ONE (09:43)
[2024-06-10] MEDS ORDERED: fentaNYL 100 MCG/2 ML INJECTION As Ordered ONE (09:43)
[2024-06-10] MEDS ORDERED: propofoL 200 MG/20 ML VIAL As Ordered ONE (09:43)
[2024-06-10] MEDS ORDERED: MIDAZOLAM INJ 2MG/2ML VIAL As Ordered ONE (09:43)
[2024-06-10] MEDS ORDERED: ACETAMINOPHEN 1000MG 100ML IV BAG As Ordered ONE (10:36)
[2024-06-10] MEDS: LevoFLOXacin IV 500 MG in IV 1 EA IV ONE (10:55)
[2024-06-10] MEDS ORDERED: KETOROLAC 60MG 2ML VIAL As Ordered ONE (11:10)
[2024-06-10 11:19] VITALS: BP 114/67; TEMP 97.3; O2SAT 98
[2024-06-10] MEDS ORDERED: LEVO1TAB39 PO (11:21)
[2024-06-10] MEDS: ISOVUE-300 61% 100ML VIAL As Ordered ONE (11:21)
[2024-06-12] MEDS ORDERED: OLAN2.5T25 PO (11:24)
[2024-06-24] MEDS ORDERED: POTA10CA70 PO (15:16)
== END 2024-06-10 12:00 | disposition home or self-care (01) ==
LOC: M SDC 08:45
PROVIDERS: ATTEND Urology
DX: N13.8 Other obstructive and reflux uropathy (principal); C67.9 Malignant neoplasm of bladder, unspecified; E11.9 Type 2 diabetes mellitus without complications; I10 Essential (primary) hypertension; I72.4 Aneurysm of artery of lower extremity; E03.9 Hypothyroidism, unspecified; E78.00 Pure hypercholesterolemia, unspecified; Z90.89 Acquired absence of other organs; Z79.84 Long term (current) use of oral hypoglycemic drugs; Z79.899 Other long term (current) drug therapy; Z85.46 Personal history of malignant neoplasm of prostate; Z92.3 Personal history of irradiation; Z92.21 Personal history of antineoplastic chemotherapy
CPT/HCPCS: 52332; 76000; C1769; C1894; C2617; J0131; J1100; J1885; J1956; J2250; J2405; J3010; Q9967

== ENCOUNTER → 2024-06-21 | Outpatient (CLI) | payer MEDICARE, BC ==
[~2024-06-21] MED LIST changes: +GASTROGRAFIN SOLUTION 30ML As Ordered ONE; +ISOVUE-370 76% 100ML VIAL As Ordered ONE; +LEVO1TAB39 PO; +OLAN2.5T25 PO; +POTA10CA70 PO
== END ==
LOC: M RAD 12:35
PROVIDERS: ATTEND Internal Medicine Hematology & Oncology
DX: C67.9 Malignant neoplasm of bladder, unspecified (principal); Z95.828 Presence of other vascular implants and grafts; J43.2 Centrilobular emphysema; R91.8 Other nonspecific abnormal finding of lung field; I70.0 Atherosclerosis of aorta; I71.21 Aneurysm of the ascending aorta, without rupture; C78.7 Secondary malignant neoplasm of liver and intrahepatic bile duct; Z96.0 Presence of urogenital implants; N28.1 Cyst of kidney, acquired; N32.3 Diverticulum of bladder; M51.44 Schmorl's nodes, thoracic region
CPT/HCPCS: 71260; 74177; Q9963; Q9967

== ENCOUNTER → 2024-07-16 | Outpatient (CLI) | payer MEDICARE, BC ==
[~2024-07-16] MED LIST changes: -GASTROGRAFIN SOLUTION 30ML As Ordered ONE; -ISOVUE-370 76% 100ML VIAL As Ordered ONE; -OLAN2.5T25 PO; +OLAN2.5T53 PO
== END ==
LOC: M ONCR 14:50
PROVIDERS: ATTEND General Practice
DX: C67.8 Malignant neoplasm of overlapping sites of bladder (principal); Z79.620 Long term (current) use of immunosuppressive biologic; Z79.890 Hormone replacement therapy; Z79.84 Long term (current) use of oral hypoglycemic drugs; Z79.899 Other long term (current) drug therapy; Z87.891 Personal history of nicotine dependence; Z92.3 Personal history of irradiation

== ENCOUNTER → 2024-08-13 | Outpatient (REF) | payer MEDICARE, BC, OTHER ==
[2024-08-13 12:19] LABS: HEMOGLOBIN A1c 7.1 % (4.0-6.0)
== END ==
LOC: M LAB REF 11:27
PROVIDERS: ATTEND Registered Nurse
DX: E11.69 Type 2 diabetes mellitus with other specified complication (principal)

== ENCOUNTER → 2024-09-16 | Outpatient (CLI) | payer MEDICARE, BC ==
[~2024-09-16] MED LIST changes: +LEVO50TA5 PO
[2024-09-16 10:07] LABS: HEMATOCRIT 37.5 % (42.0-52.0); HEMOGLOBIN 12.4 g/dl (13.5-17.5); MEAN CORPUSCULAR HEMOGLOBIN 28.1 pg (27.0-33.0); MEAN CORPUSCULAR HGB CONC 33.1 g/dl (32.0-36.5); PLATELET COUNT, AUTOMATED 331 10^3/uL (150-450); RED BLOOD COUNT 4.41 10^6/uL (4.30-6.10); WHITE BLOOD COUNT 11.6 10^3/uL (4.0-10.0)
[2024-09-16 10:34] LABS: ALBUMIN 3.1 G/DL (3.2-5.2); BILIRUBIN,TOTAL 1.2 MG/DL (0.3-1.2); CALCIUM LEVEL 9.9 MG/DL (8.3-10.6); CREATININE FOR GFR 1.31 MG/DL (0.70-1.30); GLOMERULAR FILTRATION RATE 58.3 (>49); POTASSIUM SERUM 3.4 MMOL/L (3.5-5.1); TOTAL PROTEIN 6.3 G/DL (5.7-8.2)
== END ==
LOC: M RAD 09:15
PROVIDERS: ATTEND Urology
DX: N28.89 Other specified disorders of kidney and ureter (principal); Z95.828 Presence of other vascular implants and grafts

== ENCOUNTER → 2024-09-27 | Outpatient (CLI) | payer MEDICARE, BC, OTHER ==
[~2024-09-27] MED LIST changes: +METO1TAB32 PO
[2024-09-27 19:33] LABS: THYROID STIMULATING HORMONE 44.286 uIU/ML (0.55-4.78)
[2024-09-27 19:35] LABS: FREE T4 0.68 NG/DL (0.89-1.76)
== END ==
LOC: M WUC 11:16
PROVIDERS: ATTEND Registered Nurse
DX: E03.9 Hypothyroidism, unspecified (principal)

== ENCOUNTER → 2024-09-30 | Outpatient (REF) | payer MEDICARE, BC, OTHER ==
[~2024-09-30] MED LIST changes: +DOXY100T27 PO
[2024-09-30 18:26] LABS: APPEARANCE, URINE CLOUDY (CLEAR); BACTERIA, URINE AUTO 1+ (NEGATIVE); BILIRUBIN, URINE AUTO NEGATIVE (NEGATIVE); BLOOD, URINE BLOOD 3+ (NEGATIVE); GLUCOSE, URINE (UA) AUTO NEGATIVE (NEGATIVE); KETONE, URINE AUTO NEGATIVE (NEGATIVE); LEUKOCYTE ESTERASE, URINE AUTO 3+ (NEGATIVE); MUCUS, URINE SMALL (NEGATIVE); NITRITE, URINE AUTO NEGATIVE (NEGATIVE); PROTEIN, URINE AUTO 1+ mg/dL (NEGATIVE); RBC, URINE AUTO TNTC /HPF (0-3); SPECIFIC GRAVITY URINE AUTO 1.005 (1.002-1.035); SQUAMOUS EPITHELIAL CELL UR AU 0 /HPF (0-6); UROBILINOGEN, URINE AUTO 0.2 mg/dL (0.0-2.0); WBC, URINE AUTO TNTC /HPF (0-3)
[2024-09-30 18:28] LABS: COLOR, URINE YELLOW (YELLOW)
== END ==
LOC: M SMT 17:13
PROVIDERS: ATTEND Urology
DX: R33.9 Retention of urine, unspecified (principal)

== ENCOUNTER 2024-10-07 06:07 | Day surgery (SDC) | payer MEDICARE, BC ==
[~2024-10-07] VITALS: Ht 175.3 cm; Wt 85.3 kg
[~2024-10-07 06:07] MED LIST changes: -DOXY100T27 PO; +[UNRECOGNIZED DRUG - REMARK] XX SCH
[2024-10-07] MEDS ORDERED: LR 1,000 ML IV SCH (06:35)
[2024-10-07] MEDS ORDERED: DOXY100T27 PO (06:35)
[2024-10-07] MEDS ORDERED: LIDOCAINE 2% 100MG/5ML SDV (FOR ANES.) As Ordered ONE (07:07)
[2024-10-07] MEDS ORDERED: propofoL 200 MG/20 ML VIAL As Ordered ONE (07:07)
[2024-10-07] MEDS ORDERED: ONDANSETRON 4MG 2ML VIAL As Ordered ONE (07:07)
[2024-10-07] MEDS ORDERED: MIDAZOLAM INJ 2MG/2ML VIAL As Ordered ONE (07:08)
[2024-10-07] MEDS ORDERED: fentaNYL 100 MCG/2 ML INJECTION As Ordered ONE (07:08)
[2024-10-07] MEDS: ceFAZolin SOD 2 GM in IV 1 EA IV ONE (07:35)
[2024-10-07] MEDS ORDERED: ACETAMINOPHEN 1000MG/100ML IV BAG As Ordered ONE (07:46)
[2024-10-07] MEDS: ISOVUE-300 61% 100ML VIAL As Ordered ONE (07:52)
[2024-10-07] MEDS ORDERED: oxyCODONE 5MG TAB PO PRN (08:00)
[2024-10-07] MEDS ORDERED: ONDANSETRON 4MG 2ML VIAL IV PRN (08:00)
[2024-10-07] MEDS ORDERED: fentaNYL 100 MCG/2 ML INJECTION IV PRN (08:00)
[2024-10-07 09:04] VITALS: BP 109/70; TEMP 97.2; O2SAT 98
== END 2024-10-07 09:32 | disposition home or self-care (01) ==
LOC: M SDC 06:07
PROVIDERS: ATTEND Urology
DX: N28.89 Other specified disorders of kidney and ureter (principal); N13.30 Unspecified hydronephrosis; R33.9 Retention of urine, unspecified; C79.49 Secondary malignant neoplasm of other parts of nervous system; C67.9 Malignant neoplasm of bladder, unspecified; Z79.899 Other long term (current) drug therapy
CPT/HCPCS: 52332; 52351; 76000; C1769; C1894; C2617; J0131; J0690; J1100; J2250; J2405; J3010; Q9967

== ENCOUNTER → 2024-10-31 | Outpatient (REF) | payer MEDICARE, BC, OTHER ==
[~2024-10-31] MED LIST changes: +DOXY100T27 PO; +LEVO1TAB38 PO; -[UNRECOGNIZED DRUG - REMARK] XX SCH
[2024-10-31 17:36] LABS: APPEARANCE, URINE CLOUDY (CLEAR); BACTERIA, URINE AUTO 1+ (NEGATIVE); BILIRUBIN, URINE AUTO NEGATIVE (NEGATIVE); BLOOD, URINE BLOOD 3+ (NEGATIVE); COLOR, URINE YELLOW (YELLOW); GLUCOSE, URINE (UA) AUTO NEGATIVE (NEGATIVE); KETONE, URINE AUTO NEGATIVE (NEGATIVE); LEUKOCYTE ESTERASE, URINE AUTO 3+ (NEGATIVE); NITRITE, URINE AUTO NEGATIVE (NEGATIVE); PROTEIN, URINE AUTO 2+ mg/dL (NEGATIVE); RBC, URINE AUTO TNTC /HPF (0-3); SPECIFIC GRAVITY URINE AUTO 1.004 (1.002-1.035); SQUAMOUS EPITHELIAL CELL UR AU 0 /HPF (0-6); UROBILINOGEN, URINE AUTO 0.2 mg/dL (0.0-2.0); WBC, URINE AUTO TNTC /HPF (0-3)
== END ==
LOC: M SMT 17:10
PROVIDERS: ATTEND Urology
DX: R39.9 Unspecified symptoms and signs involving the genitourinary system (principal)

== ENCOUNTER → 2024-11-05 | Outpatient (REF) | payer MEDICARE, OTHER ==
[2024-11-05 15:21] LABS: FREE T4 1.61 NG/DL (0.89-1.76); THYROID STIMULATING HORMONE 27.017 uIU/ML (0.55-4.78)
== END ==
LOC: M LAB REF 13:55
PROVIDERS: ATTEND Registered Nurse
DX: E03.9 Hypothyroidism, unspecified (principal)

== ENCOUNTER → 2024-11-05 | Outpatient (REF) | payer MEDICARE, OTHER ==
[2024-11-05 14:30] LABS: FREE T4 1.64 NG/DL (0.89-1.76)
[2024-11-05 14:32] LABS: THYROID PEROXIDASE ANTIBODY > 1300.0 U/ML (<60.0)
== END ==
LOC: M LAB REF 13:54
PROVIDERS: ATTEND Nurse Practitioner Family
DX: E03.9 Hypothyroidism, unspecified (principal)

== ENCOUNTER → 2024-11-14 | Outpatient (CLI) | payer MEDICARE, BC ==
[~2024-11-14] MED LIST changes: +ISOVUE-370 76% 100ML VIAL As Ordered ONE
== END ==
LOC: M RAD 07:56
PROVIDERS: ATTEND Nurse Practitioner Women's Health
DX: C67.9 Malignant neoplasm of bladder, unspecified (principal); Z95.828 Presence of other vascular implants and grafts; R91.8 Other nonspecific abnormal finding of lung field; J43.9 Emphysema, unspecified; J98.11 Atelectasis; R59.0 Localized enlarged lymph nodes; Z96.0 Presence of urogenital implants; I70.0 Atherosclerosis of aorta; K40.20 Bilateral inguinal hernia, without obstruction or gangrene, not specified as recurrent; K57.90 Diverticulosis of intestine, part unspecified, without perforation or abscess without bleeding; E27.8 Other specified disorders of adrenal gland; K76.89 Other specified diseases of liver
CPT/HCPCS: 71260; 74177; Q9967

== ENCOUNTER → 2024-11-22 | Outpatient (CLI) | payer MEDICARE, BC ==
[~2024-11-22] MED LIST changes: -ISOVUE-370 76% 100ML VIAL As Ordered ONE
== END ==
LOC: M RAD 14:09
PROVIDERS: ATTEND Internal Medicine Medical Oncology
DX: C67.9 Malignant neoplasm of bladder, unspecified (principal); N28.89 Other specified disorders of kidney and ureter

== ENCOUNTER 2024-11-27 11:42 | Observation (INO) | payer MEDICARE, BC, OTHER ==
[~2024-11-27] VITALS: Ht 175.3 cm; Wt 80.8 kg
[2024-11-27 12:23] LABS: BASO # 0.1 10^3/uL (0.0-0.2); BASO % 1.4 % (0.0-1.0); EOS # 0.4 10^3/uL (0.0-0.5); EOS % 5.1 % (0.0-3.0); HEMATOCRIT 31.2 % (42.0-52.0); HEMOGLOBIN 10.2 g/dl (13.5-17.5); LYMPH # 0.8 10^3/uL (1.5-5.0); LYMPH % 9.6 % (24.0-44.0); MEAN CORPUSCULAR HEMOGLOBIN 28.4 pg (27.0-33.0); MEAN CORPUSCULAR HGB CONC 32.7 g/dl (32.0-36.5); MEAN CORPUSCULAR VOLUME 86.9 fl (80.0-96.0); MONO # 0.8 10^3/uL (0.0-0.8); NEUTROPHILS # 6.2 10^3/uL (1.5-8.5); NEUTROPHILS % 73.5 % (36.0-66.0); PLATELET COUNT, AUTOMATED 324 10^3/uL (150-450); RED BLOOD COUNT 3.59 10^6/uL (4.30-6.10); WHITE BLOOD COUNT 8.4 10^3/uL (4.0-10.0)
[2024-11-27 13:03] LABS: BLOOD UREA NITROGEN 21 MG/DL (9-23); CALCIUM LEVEL 8.7 MG/DL (8.3-10.6); CARBON DIOXIDE LEVEL 26 MMOL/L (20-31); CHLORIDE LEVEL 98 MMOL/L (98-107); CREATININE FOR GFR 1.24 MG/DL (0.70-1.30); GLOMERULAR FILTRATION RATE > 60.0 (>49); GLUCOSE, FASTING 99 MG/DL (74-106); POTASSIUM SERUM 3.8 MMOL/L (3.5-5.1); SODIUM LEVEL 138 MMOL/L (136-145)
[2024-11-27] MEDS: NS (Normal Saline) 0.9% 1,000 ML IV ONE (13:10)
[2024-11-27 13:23] LABS: MAGNESIUM LEVEL 1.8 MG/DL (1.8-2.4)
[2024-11-27] MEDS ORDERED: MED REC IN PROGRESS XX SCH (15:20)
[2024-11-27] MEDS: NS (Normal Saline) 0.9% 1,000 ML IV SCH (15:20)
[2024-11-27] MEDS ORDERED: LEVO125T4 PO (16:18)
[2024-11-27] MEDS ORDERED: OLAN2.5T53 PO (17:06)
[2024-11-27] MEDS ORDERED: B-12100010 PO (17:06)
[2024-11-27] MEDS ORDERED: ONDA-84 PO (17:06)
[2024-11-27] MEDS ORDERED: HOME MED LIST COMPLETE! XX SCH (17:10)
[2024-11-27] MEDS: SODIUM CHLORIDE 0.9% INJ 10 ML SYR IV SCH (19:06)
[2024-11-27 21:53] VITALS: BP 128/59; TEMP 99.7; O2SAT 96
[2024-11-27 23:27] VITALS: BP 135/69; TEMP 98.3; O2SAT 95
[2024-11-28 04:02] VITALS: BP 124/66; TEMP 99.2; O2SAT 93
[2024-11-28 06:03] LABS: HEMATOCRIT 27.4 % (42.0-52.0); HEMOGLOBIN 8.9 g/dl (13.5-17.5); MEAN CORPUSCULAR HEMOGLOBIN 28.3 pg (27.0-33.0); MEAN CORPUSCULAR HGB CONC 32.5 g/dl (32.0-36.5); MEAN CORPUSCULAR VOLUME 87.3 fl (80.0-96.0); PLATELET COUNT, AUTOMATED 304 10^3/uL (150-450); RED BLOOD COUNT 3.14 10^6/uL (4.30-6.10); WHITE BLOOD COUNT 7.3 10^3/uL (4.0-10.0)
[2024-11-28 06:47] LABS: ALBUMIN 2.1 G/DL (3.2-5.2); ALKALINE PHOSPHATASE 94 U/L (40-129); ALT/SGPT 18 U/L (7.0-40); AST/SGOT 21 U/L (<34); BILIRUBIN,TOTAL 0.5 MG/DL (0.3-1.2); BLOOD UREA NITROGEN 19 MG/DL (9-23); CALCIUM LEVEL 7.9 MG/DL (8.3-10.6); CARBON DIOXIDE LEVEL 24 MMOL/L (20-31); CHLORIDE LEVEL 102 MMOL/L (98-107); CREATININE FOR GFR 1.25 MG/DL (0.70-1.30); GLOMERULAR FILTRATION RATE > 60.0 (>49); GLUCOSE, FASTING 94 MG/DL (74-106); SODIUM LEVEL 137 MMOL/L (136-145); TOTAL PROTEIN 5.2 G/DL (5.7-8.2)
[2024-11-28 07:21] VITALS: BP 107/65; TEMP 101; O2SAT 92
[2024-11-28] MEDS: ENOXAPARIN 40MG/0.4ML SYRINGE (J1650 PER 10MG) SC SCH (08:37)
[2024-11-28] MEDS: ACETAMINOPHEN 325 MG TAB PO PRN (08:37)
[2024-11-28 08:57] LABS: PROCALCITONIN 0.32 ng/ml
[2024-11-28 10:18] VITALS: TEMP 98.4
[2024-11-28 11:00] VITALS: BP_SYST 100; BP_SYST 101; BP_SYST 99; BP_DIAS 64; BP_DIAS 66; BP_DIAS 68
[2024-11-28] MEDS: LevoFLOXacin 750 MG TABLET PO SCH (12:56)
[2024-11-28] MEDS ORDERED: LEVO75TAB PO (14:44)
== END 2024-11-28 16:00 | disposition home or self-care (01) ==
LOC: M ED 11:42 → M ED INP 11:43 → M PCU 21:45
PROVIDERS: ADMIT Student in an Organized Health Care Education/Training Program; ATTEND Student in an Organized Health Care Education/Training Program
DX: R55 Syncope and collapse (principal); E86.9 Volume depletion, unspecified; D64.9 Anemia, unspecified; Z79.84 Long term (current) use of oral hypoglycemic drugs; Z79.899 Other long term (current) drug therapy
CPT/HCPCS: 36415; 71045; 80053; 84145; 85027; 87486; 87581; 87633; 87798; 93005; 96361; 96372; 96374; 97161; 97530; G0378; J1650

== ENCOUNTER → 2024-12-05 | Outpatient (CLI) | payer MEDICARE, BC, OTHER ==
[~2024-12-05] MED LIST changes: +B-12100010 PO; +LEVO125T4 PO; +LEVO75TAB PO
== END ==
LOC: M ONCR 14:05
PROVIDERS: ATTEND General Practice
DX: C67.8 Malignant neoplasm of overlapping sites of bladder (principal); C78.7 Secondary malignant neoplasm of liver and intrahepatic bile duct; Z92.3 Personal history of irradiation; Z79.620 Long term (current) use of immunosuppressive biologic; Z87.891 Personal history of nicotine dependence; Z87.448 Personal history of other diseases of urinary system; Z72.89 Other problems related to lifestyle; Z79.84 Long term (current) use of oral hypoglycemic drugs; Z79.899 Other long term (current) drug therapy; Z92.29 Personal history of other drug therapy; Z71.2 Person consulting for explanation of examination or test findings; Z93.59 Other cystostomy status

== ENCOUNTER → 2025-01-15 | Outpatient (CLI) | payer MEDICARE, BC ==
[~2025-01-15] MED LIST changes: +FLOM0.4C39 PO
== END ==
LOC: M ONCR 14:21
PROVIDERS: ATTEND General Practice
DX: R39.12 Poor urinary stream (principal); Z46.6 Encounter for fitting and adjustment of urinary device

== ENCOUNTER → 2025-02-04 | Outpatient (CLI) | payer MEDICARE, BC ==
[~2025-02-04] MED LIST changes: +LEVO150T7 PO; +NITR-67 PO
[2025-02-04 13:07] LABS: HEMATOCRIT 37.9 % (42.0-52.0); HEMOGLOBIN 12.1 g/dl (13.5-17.5); MEAN CORPUSCULAR HEMOGLOBIN 26.2 pg (27.0-33.0); MEAN CORPUSCULAR HGB CONC 31.9 g/dl (32.0-36.5); MEAN CORPUSCULAR VOLUME 82.2 fl (80.0-96.0); PLATELET COUNT, AUTOMATED 495 10^3/uL (150-450); RED BLOOD COUNT 4.61 10^6/uL (4.30-6.10); WHITE BLOOD COUNT 13.3 10^3/uL (4.0-10.0)
[2025-02-04 13:49] LABS: ALBUMIN 2.9 G/DL (3.2-5.2); BILIRUBIN,TOTAL 0.5 MG/DL (0.3-1.2); CREATININE FOR GFR 1.79 MG/DL (0.70-1.30); GLOMERULAR FILTRATION RATE 41.3 (>49); POTASSIUM SERUM 5.5 MMOL/L (3.5-5.1); TOTAL PROTEIN 7.1 G/DL (5.7-8.2)
[2025-02-06 13:17] LABS: PSA % FREE UNABLE TO CALCULATE % (calc) (>25); PSA FREE < 0.1 ng/mL; PSA TOTAL < 0.1 ng/mL (< OR = 4.0)
== END ==
LOC: M RAD 11:25
PROVIDERS: ATTEND Urology
DX: N28.89 Other specified disorders of kidney and ureter (principal)

== ENCOUNTER → 2025-02-04 | Outpatient (CLI) | payer MEDICARE, BC ==
[2025-02-04 13:46] LABS: FREE T4 1.86 NG/DL (0.89-1.76); THYROID STIMULATING HORMONE 2.59 uIU/ML (0.55-4.78)
== END ==
LOC: M LAB 11:29
PROVIDERS: ATTEND Nurse Practitioner Family
DX: E03.9 Hypothyroidism, unspecified (principal)

== ENCOUNTER → 2025-02-10 | Outpatient (REF) | payer MEDICARE, BC ==
[~2025-02-10] MED LIST changes: -FLOM0.4C39 PO; +MACR100C43 PO; +NITR100C2 PO; +OXYB5TAB14 PO; +PYRI1TAB5 PO; +TAMS-18 PO
[2025-02-10 10:05] LABS: APPEARANCE, URINE MANUAL CLOUDY (CLEAR)
[2025-02-10 10:06] LABS: BILIRUBIN, URINE MANUAL NEGATIVE (NEGATIVE); COLOR, URINE MANUAL DK YELLOW (YELLOW); GLUCOSE, URINE (UA) MANUAL NEGATIVE (NEGATIVE); KETONE, URINE MANUAL NEGATIVE (NEGATIVE); NITRITE, URINE MANUAL POSITIVE (NEGATIVE); PH,URINE MAN 8.5 UNITS (5.0 - 7.0); PROTEIN, URINE MANUAL 3+ mg/dL (NEGATIVE); SPECIFIC GRAVITY,URINE MANUAL 1.005 (1.002-1.035); UROBILINOGEN, URINE MANUAL NORMAL (NORMAL)
[2025-02-10 10:07] LABS: BLOOD URINE MANUAL POSITIVE (NEGATIVE); LEUKOCYTE ESTERASE, URINE MAN POSITIVE (NEGATIVE)
[2025-02-10 10:11] LABS: RBC, URINE TNTC /hpf (0-3); SQUAMOUS EPITHELIAL CELL URINE SMALL AMOUNT /hpf (SMALL AMT); WBC, URINE TNTC /hpf (0-3)
[2025-02-10 10:12] LABS: BACTERIA, URINE MOD AMOUNT; HYALINE CAST, URINE NONE SEEN /lpf (0-1)
== END ==
LOC: M LAB REF 09:07
PROVIDERS: ATTEND Urology
DX: N28.89 Other specified disorders of kidney and ureter (principal)

== ENCOUNTER → 2025-02-10 | Outpatient (CLI) | payer MEDICARE, BC ==
[~2025-02-10] MED LIST changes: +ISOVUE-370 76% 100ML VIAL As Ordered ONE; -MACR100C43 PO; -NITR100C2 PO; -OXYB5TAB14 PO; -PYRI1TAB5 PO
== END ==
LOC: M RAD 08:07
PROVIDERS: ATTEND Internal Medicine Medical Oncology
DX: C67.9 Malignant neoplasm of bladder, unspecified (principal); R91.8 Other nonspecific abnormal finding of lung field; R93.2 Abnormal findings on diagnostic imaging of liver and biliary tract; R93.429 Abnormal radiologic findings on diagnostic imaging of unspecified kidney; R93.41 Abnormal radiologic findings on diagnostic imaging of renal pelvis, ureter, or bladder
CPT/HCPCS: 71260; 74177; 81000; J1642; Q9967

== ENCOUNTER 2025-02-17 08:41 | Day surgery (SDC) | payer MEDICARE, BC ==
[~2025-02-17] VITALS: Ht 177.8 cm; Wt 71.2 kg
[~2025-02-17 08:41] MED LIST changes: -ISOVUE-370 76% 100ML VIAL As Ordered ONE; +LIDOCAINE 2% 100MG/5ML SDV (FOR ANES.) As Ordered ONE; +MIDAZOLAM INJ 2MG/2ML VIAL As Ordered ONE; +ONDANSETRON 4MG 2ML VIAL As Ordered ONE; +fentaNYL 100 MCG/2 ML INJECTION As Ordered ONE; +propofoL 200 MG/20 ML VIAL As Ordered ONE
[2025-02-17] MEDS ORDERED: NITR100C2 PO (09:20)
[2025-02-17] MEDS ORDERED: LR 1,000 ML IV SCH (09:30)
[2025-02-17] MEDS ORDERED: CIPROFLOXACIN/D5W 400 MG/200 ML BAG As Ordered ONE (11:09)
[2025-02-17] MEDS: CIPROFLOXACIN 400 MG in IV 1 EA IV ONE (11:14)
[2025-02-17] MEDS ORDERED: ACETAMINOPHEN 1000MG/100ML IV BAG As Ordered ONE (11:27)
[2025-02-17] MEDS: ISOVUE-300 61% 100ML VIAL As Ordered ONE (11:46)
[2025-02-17] MEDS ORDERED: PYRI1TAB5 PO (12:06)
[2025-02-17] MEDS ORDERED: OXYB5TAB14 PO (12:06)
[2025-02-17] MEDS ORDERED: MACR100C43 PO (12:15)
[2025-02-17 13:00] VITALS: BP 144/82; TEMP 98.3; O2SAT 99
[2025-02-26] MEDS ORDERED: AUGM500T34 PO (10:09)
== END 2025-02-17 13:14 | disposition home or self-care (01) ==
LOC: M SDC 08:41
PROVIDERS: ATTEND Urology
DX: C67.9 Malignant neoplasm of bladder, unspecified (principal); N28.89 Other specified disorders of kidney and ureter; I10 Essential (primary) hypertension; E78.00 Pure hypercholesterolemia, unspecified; E03.9 Hypothyroidism, unspecified; E11.9 Type 2 diabetes mellitus without complications; K76.89 Other specified diseases of liver; N40.0 Benign prostatic hyperplasia without lower urinary tract symptoms; I72.4 Aneurysm of artery of lower extremity; Z92.3 Personal history of irradiation; Z92.21 Personal history of antineoplastic chemotherapy; Z90.89 Acquired absence of other organs; Z79.899 Other long term (current) drug therapy; Z79.890 Hormone replacement therapy; D64.9 Anemia, unspecified
CPT/HCPCS: 52240; 52332; 76000; 87088; 87186; 88307; C1769; C2617; J0131; J0744; J2250; J2405; J3010; Q9967

== ENCOUNTER 2025-03-31 10:01 | Outpatient (RCR) | payer MEDICARE, BC, OTHER ==
[2024-03-05 11:07] VITALS: BP 106/72; O2SAT 95
[2024-03-05 13:32] LABS: INR 1.15; PARTIAL THROMBOPLASTIN TIME 26.8 SECONDS (24.8-34.2); PROTHROMBIN TIME 14.3 SECONDS (12.5-14.5)
[2024-03-18 09:57] LABS: BASO # 0.1 10^3/uL (0.0-0.2); BASO % 1.1 % (0.0-1.0); EOS # 0.7 10^3/uL (0.0-0.5); EOS % 6.6 % (0.0-3.0); HEMATOCRIT 35.5 % (42.0-52.0); HEMOGLOBIN 11.7 g/dl (13.5-17.5); LYMPH # 1.7 10^3/uL (1.5-5.0); LYMPH % 15.7 % (24.0-44.0); MEAN CORPUSCULAR HEMOGLOBIN 28.7 pg (27.0-33.0); MONO # 0.9 10^3/uL (0.0-0.8); MONO % 8.7 % (2.0-8.0); NEUTROPHILS # 7.1 10^3/uL (1.5-8.5); NEUTROPHILS % 67.2 % (36.0-66.0); PLATELET COUNT, AUTOMATED 219 10^3/uL (150-450); RED BLOOD COUNT 4.08 10^6/uL (4.30-6.10); WHITE BLOOD COUNT 10.5 10^3/uL (4.0-10.0)
[2024-03-18 10:32] LABS: ALKALINE PHOSPHATASE 62 U/L (46-116); ALT/SGPT 10 U/L (7.0-40); AST/SGOT < 8 U/L (<34); BILIRUBIN,TOTAL 0.4 MG/DL (0.3-1.2); BLOOD UREA NITROGEN 20 MG/DL (9-23); CALCIUM LEVEL 9.2 MG/DL (8.3-10.6); CARBON DIOXIDE LEVEL 27 MMOL/L (20-31); CHLORIDE LEVEL 107 MMOL/L (98-107); CREATININE FOR GFR 1.12 MG/DL (0.70-1.30); GLOMERULAR FILTRATION RATE > 60.0 (>49); GLUCOSE, FASTING 127 MG/DL (74-106); MAGNESIUM LEVEL 1.6 MG/DL (1.8-2.4); POTASSIUM SERUM 3.8 MMOL/L (3.5-5.1); SODIUM LEVEL 138 MMOL/L (136-145)
[2024-03-18 10:38] VITALS: BP 115/73; O2SAT 97
[2024-04-15 13:03] VITALS: BP 125/73; O2SAT 97
[2024-04-23 09:24] LABS: BASO # 0.1 10^3/uL (0.0-0.2); BASO % 1.8 % (0.0-1.0); EOS # 0.5 10^3/uL (0.0-0.5); HEMATOCRIT 28.9 % (42.0-52.0); HEMOGLOBIN 9.3 g/dl (13.5-17.5); LYMPH # 0.8 10^3/uL (1.5-5.0); LYMPH % 14.5 % (24.0-44.0); MEAN CORPUSCULAR HEMOGLOBIN 28.4 pg (27.0-33.0); MEAN CORPUSCULAR HGB CONC 32.2 g/dl (32.0-36.5); MEAN CORPUSCULAR VOLUME 88.1 fl (80.0-96.0); MONO # 0.5 10^3/uL (0.0-0.8); MONO % 8.8 % (2.0-8.0); NEUTROPHILS # 3.7 10^3/uL (1.5-8.5); NEUTROPHILS % 65.2 % (36.0-66.0); PLATELET COUNT, AUTOMATED 239 10^3/uL (150-450); RED BLOOD COUNT 3.28 10^6/uL (4.30-6.10); WHITE BLOOD COUNT 5.7 10^3/uL (4.0-10.0)
[2024-04-23 09:34] VITALS: BP 110/68; O2SAT 96
[2024-04-23 10:36] LABS: ALBUMIN 2.8 G/DL (3.2-5.2); ALKALINE PHOSPHATASE 80 U/L (46-116); ALT/SGPT 15 U/L (7.0-40); AST/SGOT 8 U/L (<34); BILIRUBIN,TOTAL 0.3 MG/DL (0.3-1.2); BLOOD UREA NITROGEN 16 MG/DL (9-23); CALCIUM LEVEL 8.8 MG/DL (8.3-10.6); CARBON DIOXIDE LEVEL 27 MMOL/L (20-31); CHLORIDE LEVEL 105 MMOL/L (98-107); CREATININE FOR GFR 1.03 MG/DL (0.70-1.30); FREE T3 3.2 PG/ML (2.3-4.2); GLOMERULAR FILTRATION RATE > 60.0 (>49); GLUCOSE, FASTING 137 MG/DL (74-106); IRON (FE) 40 UG/DL (65-175); PERCENT SATURATION 15.1 % (19.7-50.0); POTASSIUM SERUM 3.9 MMOL/L (3.5-5.1); SODIUM LEVEL 138 MMOL/L (136-145); THYROID STIMULATING HORMONE 4.567 uIU/ML (0.55-4.78); TOTAL IRON BINDING CAPACITY 265 UG/DL (250-425); TOTAL PROTEIN 5.9 G/DL (5.7-8.2)
[2024-04-23 10:38] LABS: FERRITIN 118.9 NG/ML (10.5-307.3)
[2024-04-23] MEDS: SODIUM CHLORIDE 0.9% INJ 10 ML SYR IV PRN (11:07)
[2024-04-24 12:50] VITALS: BP 115/72; O2SAT 97
[2024-04-24] MEDS: dexAMETHasone 4 MG TAB PO SCH (13:10)
[2024-04-24] MEDS: PROCHLORPERAZINE 5MG TAB PO SCH (13:10)
[2024-04-24] MEDS: PEMBROLIZUMAB 200 MG in NS 100 ML IV SCH (14:31)
[2024-04-24] MEDS: SODIUM CHLORIDE 0.9% INJ 10 ML SYR IV PRN (15:11)
[2024-04-30] MEDS: SODIUM CHLORIDE 0.9% INJ 10 ML SYR IV PRN (11:06)
[2024-04-30 11:21] LABS: BASO # 0.1 10^3/uL (0.0-0.2); BASO % 1.1 % (0.0-1.0); EOS # 0.4 10^3/uL (0.0-0.5); EOS % 5.3 % (0.0-3.0); HEMATOCRIT 30.6 % (42.0-52.0); HEMOGLOBIN 10.1 g/dl (13.5-17.5); LYMPH # 0.6 10^3/uL (1.5-5.0); LYMPH % 8.2 % (24.0-44.0); MEAN CORPUSCULAR HEMOGLOBIN 28.5 pg (27.0-33.0); MEAN CORPUSCULAR VOLUME 86.2 fl (80.0-96.0); MONO # 0.9 10^3/uL (0.0-0.8); MONO % 12.2 % (2.0-8.0); NEUTROPHILS # 5.4 10^3/uL (1.5-8.5); NEUTROPHILS % 72.7 % (36.0-66.0); PLATELET COUNT, AUTOMATED 236 10^3/uL (150-450); RED BLOOD COUNT 3.55 10^6/uL (4.30-6.10); WHITE BLOOD COUNT 7.4 10^3/uL (4.0-10.0)
[2024-04-30 11:50] LABS: ALBUMIN 3.1 G/DL (3.2-5.2); ALKALINE PHOSPHATASE 75 U/L (46-116); ALT/SGPT 12 U/L (7.0-40); AST/SGOT 11 U/L (<34); BILIRUBIN,TOTAL 0.9 MG/DL (0.3-1.2); BLOOD UREA NITROGEN 15 MG/DL (9-23); CARBON DIOXIDE LEVEL 30 MMOL/L (20-31); CHLORIDE LEVEL 100 MMOL/L (98-107); GLOMERULAR FILTRATION RATE > 60.0 (>49); GLUCOSE, FASTING 135 MG/DL (74-106); POTASSIUM SERUM 3.4 MMOL/L (3.5-5.1); SODIUM LEVEL 135 MMOL/L (136-145); TOTAL PROTEIN 6.6 G/DL (5.7-8.2)
[2024-04-30 11:53] LABS: FREE T4 1.16 NG/DL (0.89-1.76); THYROID STIMULATING HORMONE 2.567 uIU/ML (0.55-4.78)
[2024-04-30 11:56] LABS: FREE T3 3.2 PG/ML (2.3-4.2)
[2024-05-01 11:44] VITALS: BP 120/67; O2SAT 94
[2024-05-01] MEDS: MAG SULF 1GM/100ML (MAG RUN) 100 ML IV ONE (12:47)
[2024-05-01] MEDS: PROCHLORPERAZINE 5MG TAB PO SCH (12:47)
[2024-05-01] MEDS: KCL 10MEQ/100ML SWI (KRUN) 100 ML IV ONE (12:47)
[2024-05-01] MEDS: dexAMETHasone 4 MG TAB PO SCH (12:48)
[2024-05-01] MEDS: SODIUM CHLORIDE 0.9% INJ 10 ML SYR IV PRN (14:35)
[2024-05-14] MEDS: SODIUM CHLORIDE 0.9% INJ 10 ML SYR IV PRN (11:20)
[2024-05-14 11:43] LABS: BASO # 0.1 10^3/uL (0.0-0.2); BASO % 1.4 % (0.0-1.0); HEMATOCRIT 31.5 % (42.0-52.0); HEMOGLOBIN 10.7 g/dl (13.5-17.5); LYMPH # 0.8 10^3/uL (1.5-5.0); LYMPH % 16.3 % (24.0-44.0); MEAN CORPUSCULAR HEMOGLOBIN 28.3 pg (27.0-33.0); MEAN CORPUSCULAR VOLUME 83.3 fl (80.0-96.0); MONO # 0.9 10^3/uL (0.0-0.8); MONO % 17.9 % (2.0-8.0); NEUTROPHILS % 59.9 % (36.0-66.0); PLATELET COUNT, AUTOMATED 649 10^3/uL (150-450); RED BLOOD COUNT 3.78 10^6/uL (4.30-6.10); WHITE BLOOD COUNT 4.9 10^3/uL (4.0-10.0)
[2024-05-14 12:12] LABS: ALBUMIN 2.9 G/DL (3.2-5.2); BILIRUBIN,TOTAL 0.4 MG/DL (0.3-1.2); CALCIUM LEVEL 9.1 MG/DL (8.3-10.6); CREATININE FOR GFR 1.6 MG/DL (0.70-1.30); GLOMERULAR FILTRATION RATE 46.4 (>49); POTASSIUM SERUM 3.7 MMOL/L (3.5-5.1); TOTAL PROTEIN 6.7 G/DL (5.7-8.2)
[2024-05-14 12:17] LABS: THYROID STIMULATING HORMONE 4.969 uIU/ML (0.55-4.78)
[2024-05-14 12:18] LABS: FREE T4 1.08 NG/DL (0.89-1.76)
[2024-05-14 12:20] LABS: FREE T3 2.7 PG/ML (2.3-4.2)
[2024-05-15 11:31] VITALS: BP 124/75; O2SAT 96
[2024-05-15] MEDS: NS (Normal Saline) 0.9% 1,000 ML IV ONE (12:35)
[2024-05-15] MEDS: MAG SULF 1GM/100ML (MAG RUN) 100 ML IV ONE (12:35)
[2024-05-15] MEDS: ONDANSETRON IV ONE (12:50)
[2024-05-15] MEDS: dexAMETHasone 4 MG/ML 1 ML VIAL IV ONE (12:50)
[2024-05-15] MEDS: NS IV ONE (12:50)
[2024-05-15] MEDS: SODIUM CHLORIDE 0.9% INJ 10 ML SYR IV PRN (13:42)
[2024-05-21] MEDS: SODIUM CHLORIDE 0.9% INJ 10 ML SYR IV PRN (11:28)
[2024-05-21 11:51] LABS: BASO # 0.1 10^3/uL (0.0-0.2); HEMATOCRIT 34.6 % (42.0-52.0); HEMOGLOBIN 11.4 g/dl (13.5-17.5); LYMPH # 1.1 10^3/uL (1.5-5.0); LYMPH % 11.3 % (24.0-44.0); MEAN CORPUSCULAR HEMOGLOBIN 28.1 pg (27.0-33.0); MEAN CORPUSCULAR HGB CONC 32.9 g/dl (32.0-36.5); MEAN CORPUSCULAR VOLUME 85.2 fl (80.0-96.0); NEUTROPHILS # 6.8 10^3/uL (1.5-8.5); PLATELET COUNT, AUTOMATED 307 10^3/uL (150-450); RED BLOOD COUNT 4.06 10^6/uL (4.30-6.10); WHITE BLOOD COUNT 9.4 10^3/uL (4.0-10.0)
[2024-05-21 12:21] LABS: ALBUMIN 3.1 G/DL (3.2-5.2); BILIRUBIN,TOTAL 0.5 MG/DL (0.3-1.2); CALCIUM LEVEL 8.9 MG/DL (8.3-10.6); CREATININE FOR GFR 1.5 MG/DL (0.70-1.30); POTASSIUM SERUM 3.3 MMOL/L (3.5-5.1); TOTAL PROTEIN 6.8 G/DL (5.7-8.2)
[2024-05-22 11:06] VITALS: BP 121/77; O2SAT 93
[2024-05-22] MEDS: KCL 10MEQ/100ML SWI (KRUN) 100 ML IV SCH (11:47)
[2024-05-22] MEDS: PROCHLORPERAZINE 5MG TAB PO SCH (11:48)
[2024-05-22] MEDS: dexAMETHasone 4 MG TAB PO SCH (11:48)
[2024-05-22] MEDS: PEMBROLIZUMAB 200 MG in NS 100 ML IV SCH (14:45)
[2024-05-22] MEDS: SODIUM CHLORIDE 0.9% INJ 10 ML SYR IV PRN (15:17)
[2024-05-28] MEDS: SODIUM CHLORIDE 0.9% INJ 10 ML SYR IV PRN (13:09)
[2024-05-28 13:35] LABS: BASO # 0.1 10^3/uL (0.0-0.2); BASO % 1.2 % (0.0-1.0); EOS % 0.2 % (0.0-3.0); HEMATOCRIT 31.9 % (42.0-52.0); HEMOGLOBIN 10.5 g/dl (13.5-17.5); LYMPH # 0.8 10^3/uL (1.5-5.0); LYMPH % 9.7 % (24.0-44.0); MEAN CORPUSCULAR HEMOGLOBIN 28.7 pg (27.0-33.0); MEAN CORPUSCULAR HGB CONC 32.9 g/dl (32.0-36.5); MEAN CORPUSCULAR VOLUME 87.2 fl (80.0-96.0); MONO # 0.9 10^3/uL (0.0-0.8); MONO % 10.2 % (2.0-8.0); NEUTROPHILS # 6.6 10^3/uL (1.5-8.5); NEUTROPHILS % 78.2 % (36.0-66.0); PLATELET COUNT, AUTOMATED 276 10^3/uL (150-450); RED BLOOD COUNT 3.66 10^6/uL (4.30-6.10); WHITE BLOOD COUNT 8.4 10^3/uL (4.0-10.0)
[2024-05-28 14:10] LABS: ALBUMIN 2.9 G/DL (3.2-5.2); ALKALINE PHOSPHATASE 72 U/L (46-116); ALT/SGPT 23 U/L (7.0-40); AST/SGOT 18 U/L (<34); BILIRUBIN,TOTAL 0.4 MG/DL (0.3-1.2); BLOOD UREA NITROGEN 20 MG/DL (9-23); CALCIUM LEVEL 9.4 MG/DL (8.3-10.6); CARBON DIOXIDE LEVEL 29 MMOL/L (20-31); CHLORIDE LEVEL 100 MMOL/L (98-107); GLOMERULAR FILTRATION RATE > 60.0 (>49); GLUCOSE, FASTING 150 MG/DL (74-106); POTASSIUM SERUM 3.4 MMOL/L (3.5-5.1); SODIUM LEVEL 137 MMOL/L (136-145); TOTAL PROTEIN 6.6 G/DL (5.7-8.2)
[2024-05-29 12:41] VITALS: BP 119/68; O2SAT 96
[2024-05-29] MEDS: MAG SULF 1GM/100ML (MAG RUN) 100 ML IV ONE (13:00)
[2024-05-29] MEDS: PROCHLORPERAZINE 5MG TAB PO SCH (13:04)
[2024-05-29] MEDS: KCL 10MEQ/100ML SWI (KRUN) 100 ML IV ONE (13:04)
[2024-05-29] MEDS: ATROPINE SULF 0.4 MG/ML 1 ML VIAL IVP PRN (13:05)
[2024-05-29] MEDS: dexAMETHasone 4 MG TAB PO SCH (13:05)
[2024-06-11] MEDS: SODIUM CHLORIDE 0.9% INJ 10 ML SYR IV PRN (13:15)
[2024-06-11 13:38] LABS: BASO # 0.1 10^3/uL (0.0-0.2); BASO % 0.9 % (0.0-1.0); EOS % 0.2 % (0.0-3.0); HEMATOCRIT 34.1 % (42.0-52.0); HEMOGLOBIN 11.5 g/dl (13.5-17.5); LYMPH % 9.4 % (24.0-44.0); MEAN CORPUSCULAR HEMOGLOBIN 28.3 pg (27.0-33.0); MEAN CORPUSCULAR HGB CONC 33.7 g/dl (32.0-36.5); MEAN CORPUSCULAR VOLUME 83.8 fl (80.0-96.0); MONO # 1.2 10^3/uL (0.0-0.8); MONO % 11.9 % (2.0-8.0); NEUTROPHILS # 7.8 10^3/uL (1.5-8.5); NEUTROPHILS % 76.5 % (36.0-66.0); PLATELET COUNT, AUTOMATED 547 10^3/uL (150-450); RED BLOOD COUNT 4.07 10^6/uL (4.30-6.10); WHITE BLOOD COUNT 10.2 10^3/uL (4.0-10.0)
[2024-06-11 14:00] LABS: ALBUMIN 2.7 G/DL (3.2-5.2); BILIRUBIN,TOTAL 0.3 MG/DL (0.3-1.2); CALCIUM LEVEL 8.9 MG/DL (8.3-10.6); CREATININE FOR GFR 1.29 MG/DL (0.70-1.30); GLOMERULAR FILTRATION RATE 59.5 (>49); POTASSIUM SERUM 3.7 MMOL/L (3.5-5.1); TOTAL PROTEIN 6.3 G/DL (5.7-8.2)
[2024-06-11 14:03] LABS: FREE T4 1.43 NG/DL (0.89-1.76)
[2024-06-11 14:04] LABS: THYROID STIMULATING HORMONE 1.897 uIU/ML (0.55-4.78)
[2024-06-11 14:06] LABS: FREE T3 2.6 PG/ML (2.3-4.2)
[2024-06-12 11:08] VITALS: BP 110/69; O2SAT 97
[2024-06-12] MEDS: dexAMETHasone 4 MG TAB PO SCH (11:48)
[2024-06-12] MEDS: PROCHLORPERAZINE 5MG TAB PO SCH (11:48)
[2024-06-12] MEDS: PEMBROLIZUMAB 200 MG in NS 100 ML IV SCH (14:05)
[2024-06-18] MEDS: SODIUM CHLORIDE 0.9% INJ 10 ML SYR IV PRN (12:49)
[2024-06-18 13:06] LABS: BASO # 0.1 10^3/uL (0.0-0.2); BASO % 1.1 % (0.0-1.0); EOS % 0.1 % (0.0-3.0); HEMOGLOBIN 13.1 g/dl (13.5-17.5); LYMPH # 1.1 10^3/uL (1.5-5.0); LYMPH % 13.4 % (24.0-44.0); MEAN CORPUSCULAR HEMOGLOBIN 27.8 pg (27.0-33.0); MEAN CORPUSCULAR HGB CONC 32.8 g/dl (32.0-36.5); MEAN CORPUSCULAR VOLUME 84.9 fl (80.0-96.0); MONO # 1.2 10^3/uL (0.0-0.8); MONO % 14.5 % (2.0-8.0); NEUTROPHILS % 70.4 % (36.0-66.0); PLATELET COUNT, AUTOMATED 335 10^3/uL (150-450); RED BLOOD COUNT 4.71 10^6/uL (4.30-6.10); WHITE BLOOD COUNT 8.5 10^3/uL (4.0-10.0)
[2024-06-18 13:30] LABS: ALBUMIN 3.1 G/DL (3.2-5.2); ALKALINE PHOSPHATASE 77 U/L (46-116); ALT/SGPT 18 U/L (7.0-40); AST/SGOT 19 U/L (<34); BILIRUBIN,TOTAL 0.6 MG/DL (0.3-1.2); BLOOD UREA NITROGEN 13 MG/DL (9-23); CALCIUM LEVEL 9.6 MG/DL (8.3-10.6); CARBON DIOXIDE LEVEL 25 MMOL/L (20-31); CHLORIDE LEVEL 102 MMOL/L (98-107); CREATININE FOR GFR 0.92 MG/DL (0.70-1.30); GLOMERULAR FILTRATION RATE > 60.0 (>49); GLUCOSE, FASTING 135 MG/DL (74-106); POTASSIUM SERUM 3.6 MMOL/L (3.5-5.1); SODIUM LEVEL 136 MMOL/L (136-145); TOTAL PROTEIN 6.9 G/DL (5.7-8.2)
[2024-06-19 12:25] VITALS: BP 114/72; O2SAT 98
[2024-06-19] MEDS: MAG SULF 1GM/100ML (MAG RUN) 100 ML IV ONE (12:32)
[2024-06-19] MEDS: dexAMETHasone 4 MG TAB PO SCH (12:32)
[2024-06-19] MEDS: PROCHLORPERAZINE 5MG TAB PO SCH (12:33)
[2024-06-19] MEDS: SODIUM CHLORIDE 0.9% INJ 10 ML SYR IV PRN (14:05)
[2024-06-24 14:59] VITALS: BP 108/72; O2SAT 98
[2024-07-02] MEDS: SODIUM CHLORIDE 0.9% INJ 10 ML SYR IV PRN (13:08)
[2024-07-02 13:25] LABS: BASO # 0.1 10^3/uL (0.0-0.2); BASO % 1.6 % (0.0-1.0); EOS # 0.1 10^3/uL (0.0-0.5); EOS % 1.3 % (0.0-3.0); HEMATOCRIT 35.8 % (42.0-52.0); HEMOGLOBIN 12.1 g/dl (13.5-17.5); LYMPH # 0.8 10^3/uL (1.5-5.0); LYMPH % 18.8 % (24.0-44.0); MEAN CORPUSCULAR HEMOGLOBIN 27.9 pg (27.0-33.0); MEAN CORPUSCULAR HGB CONC 33.8 g/dl (32.0-36.5); MEAN CORPUSCULAR VOLUME 82.7 fl (80.0-96.0); MONO # 0.9 10^3/uL (0.0-0.8); NEUTROPHILS # 2.6 10^3/uL (1.5-8.5); NEUTROPHILS % 58.9 % (36.0-66.0); PLATELET COUNT, AUTOMATED 367 10^3/uL (150-450); RED BLOOD COUNT 4.33 10^6/uL (4.30-6.10); WHITE BLOOD COUNT 4.5 10^3/uL (4.0-10.0)
[2024-07-02 14:04] LABS: THYROID STIMULATING HORMONE 1.735 uIU/ML (0.55-4.78)
[2024-07-02 14:05] LABS: FREE T4 1.77 NG/DL (0.89-1.76)
[2024-07-02 14:17] LABS: ALKALINE PHOSPHATASE 71 U/L (46-116); ALT/SGPT 15 U/L (7.0-40); AST/SGOT 20 U/L (<34); BILIRUBIN,TOTAL 0.6 MG/DL (0.3-1.2); BLOOD UREA NITROGEN 12 MG/DL (9-23); CALCIUM LEVEL 9.4 MG/DL (8.3-10.6); CARBON DIOXIDE LEVEL 33 MMOL/L (20-31); CHLORIDE LEVEL 95 MMOL/L (98-107); CREATININE FOR GFR 1.14 MG/DL (0.70-1.30); GLOMERULAR FILTRATION RATE > 60.0 (>49); GLUCOSE, FASTING 126 MG/DL (74-106); POTASSIUM SERUM 3.1 MMOL/L (3.5-5.1); SODIUM LEVEL 132 MMOL/L (136-145); TOTAL PROTEIN 6.7 G/DL (5.7-8.2)
[2024-07-02 16:35] LABS: FREE T3 3.5 PG/ML (2.3-4.2)
[2024-07-03 11:37] VITALS: BP 106/68; O2SAT 94
[2024-07-03] MEDS: dexAMETHasone 4 MG TAB PO SCH (12:17)
[2024-07-03] MEDS: PROCHLORPERAZINE 5MG TAB PO SCH (12:17)
[2024-07-03] MEDS: PEMBROLIZUMAB 200 MG in NS 100 ML IV SCH (14:23)
[2024-07-09] MEDS: SODIUM CHLORIDE 0.9% INJ 10 ML SYR IV PRN (13:11)
[2024-07-09 13:26] LABS: BASO # 0.2 10^3/uL (0.0-0.2); BASO % 1.8 % (0.0-1.0); EOS % 0.2 % (0.0-3.0); HEMATOCRIT 38.2 % (42.0-52.0); HEMOGLOBIN 12.5 g/dl (13.5-17.5); LYMPH # 1.3 10^3/uL (1.5-5.0); LYMPH % 14.6 % (24.0-44.0); MEAN CORPUSCULAR HEMOGLOBIN 27.8 pg (27.0-33.0); MEAN CORPUSCULAR HGB CONC 32.7 g/dl (32.0-36.5); MEAN CORPUSCULAR VOLUME 84.9 fl (80.0-96.0); MONO # 1.2 10^3/uL (0.0-0.8); MONO % 14.4 % (2.0-8.0); NEUTROPHILS # 5.8 10^3/uL (1.5-8.5); NEUTROPHILS % 68.1 % (36.0-66.0); PLATELET COUNT, AUTOMATED 412 10^3/uL (150-450); WHITE BLOOD COUNT 8.6 10^3/uL (4.0-10.0)
[2024-07-09 13:54] LABS: ALBUMIN 3.2 G/DL (3.2-5.2); ALKALINE PHOSPHATASE 75 U/L (46-116); ALT/SGPT 18 U/L (7.0-40); AST/SGOT 21 U/L (<34); BILIRUBIN,TOTAL 0.8 MG/DL (0.3-1.2); BLOOD UREA NITROGEN 15 MG/DL (9-23); CARBON DIOXIDE LEVEL 28 MMOL/L (20-31); CHLORIDE LEVEL 101 MMOL/L (98-107); CREATININE FOR GFR 1.09 MG/DL (0.70-1.30); GLOMERULAR FILTRATION RATE > 60.0 (>49); GLUCOSE, FASTING 169 MG/DL (74-106); POTASSIUM SERUM 3.5 MMOL/L (3.5-5.1); SODIUM LEVEL 137 MMOL/L (136-145); TOTAL PROTEIN 6.9 G/DL (5.7-8.2)
[2024-07-10 12:30] VITALS: BP 112/70; O2SAT 95
[2024-07-10] MEDS: dexAMETHasone 4 MG TAB PO SCH (12:43)
[2024-07-10] MEDS: MAG SULF 1GM/100ML (MAG RUN) 100 ML IV ONE (12:43)
[2024-07-10] MEDS: PROCHLORPERAZINE 5MG TAB PO SCH (12:43)
[2024-07-10] MEDS: SODIUM CHLORIDE 0.9% INJ 10 ML SYR IV PRN (14:53)
[2024-07-23] MEDS: SODIUM CHLORIDE 0.9% INJ 10 ML SYR IV PRN (11:26)
[2024-07-23 11:42] LABS: BASO # 0.1 10^3/uL (0.0-0.2); BASO % 2.5 % (0.0-1.0); EOS # 0.1 10^3/uL (0.0-0.5); EOS % 1.1 % (0.0-3.0); HEMATOCRIT 37.1 % (42.0-52.0); HEMOGLOBIN 12.6 g/dl (13.5-17.5); LYMPH # 1.1 10^3/uL (1.5-5.0); LYMPH % 24.5 % (24.0-44.0); MEAN CORPUSCULAR VOLUME 82.4 fl (80.0-96.0); MONO # 1.1 10^3/uL (0.0-0.8); MONO % 23.9 % (2.0-8.0); NEUTROPHILS # 2.1 10^3/uL (1.5-8.5); NEUTROPHILS % 47.3 % (36.0-66.0); PLATELET COUNT, AUTOMATED 445 10^3/uL (150-450); WHITE BLOOD COUNT 4.4 10^3/uL (4.0-10.0)
[2024-07-23 12:09] LABS: ALKALINE PHOSPHATASE 80 U/L (46-116); ALT/SGPT 16 U/L (7.0-40); AST/SGOT 20 U/L (<34); BILIRUBIN,TOTAL 0.6 MG/DL (0.3-1.2); BLOOD UREA NITROGEN 13 MG/DL (9-23); CALCIUM LEVEL 9.7 MG/DL (8.3-10.6); CARBON DIOXIDE LEVEL 29 MMOL/L (20-31); CHLORIDE LEVEL 96 MMOL/L (98-107); CREATININE FOR GFR 1.17 MG/DL (0.70-1.30); GLOMERULAR FILTRATION RATE > 60.0 (>49); GLUCOSE, FASTING 134 MG/DL (74-106); POTASSIUM SERUM 3.3 MMOL/L (3.5-5.1); SODIUM LEVEL 133 MMOL/L (136-145); TOTAL PROTEIN 7.1 G/DL (5.7-8.2)
[2024-07-23 12:12] LABS: MAGNESIUM LEVEL 1.9 MG/DL (1.8-2.4)
[2024-07-23 12:16] LABS: FREE T3 4.6 PG/ML (2.3-4.2); FREE T4 2.3 NG/DL (0.89-1.76); THYROID STIMULATING HORMONE 0.105 uIU/ML (0.55-4.78)
[2024-07-24 11:33] VITALS: BP 101/71; O2SAT 93
[2024-07-24] MEDS: PROCHLORPERAZINE 5MG TAB PO SCH (12:20)
[2024-07-24] MEDS: dexAMETHasone 4 MG TAB PO SCH (12:20)
[2024-07-24] MEDS: POTASSIUM CHLORIDE 10MEQ SR TABLET PO ONE (12:20)
[2024-07-24] MEDS: NS 50 ML IV PRN (12:58)
[2024-07-24] MEDS: PEMBROLIZUMAB 200 MG in NS 100 ML IV SCH (14:05)
[2024-07-24] MEDS: SODIUM CHLORIDE 0.9% INJ 10 ML SYR IV PRN (14:38)
[2024-07-30 11:47] LABS: BASO # 0.2 10^3/uL (0.0-0.2); BASO % 1.4 % (0.0-1.0); EOS % 0.1 % (0.0-3.0); HEMATOCRIT 36.9 % (42.0-52.0); HEMOGLOBIN 12.4 g/dl (13.5-17.5); LYMPH # 1.2 10^3/uL (1.5-5.0); LYMPH % 11.2 % (24.0-44.0); MEAN CORPUSCULAR HEMOGLOBIN 28.2 pg (27.0-33.0); MEAN CORPUSCULAR HGB CONC 33.6 g/dl (32.0-36.5); MEAN CORPUSCULAR VOLUME 84.1 fl (80.0-96.0); MONO # 1.6 10^3/uL (0.0-0.8); MONO % 14.9 % (2.0-8.0); NEUTROPHILS # 7.7 10^3/uL (1.5-8.5); NEUTROPHILS % 71.8 % (36.0-66.0); PLATELET COUNT, AUTOMATED 380 10^3/uL (150-450); RED BLOOD COUNT 4.39 10^6/uL (4.30-6.10); WHITE BLOOD COUNT 10.8 10^3/uL (4.0-10.0)
[2024-07-30 12:22] LABS: ALBUMIN 2.9 G/DL (3.2-5.2); ALKALINE PHOSPHATASE 86 U/L (46-116); ALT/SGPT 17 U/L (7.0-40); AST/SGOT 15 U/L (<34); BILIRUBIN,TOTAL 0.8 MG/DL (0.3-1.2); BLOOD UREA NITROGEN 13 MG/DL (9-23); CALCIUM LEVEL 9.5 MG/DL (8.3-10.6); CARBON DIOXIDE LEVEL 28 MMOL/L (20-31); CHLORIDE LEVEL 98 MMOL/L (98-107); CREATININE FOR GFR 1.08 MG/DL (0.70-1.30); GLOMERULAR FILTRATION RATE > 60.0 (>49); GLUCOSE, FASTING 133 MG/DL (74-106); POTASSIUM SERUM 3.4 MMOL/L (3.5-5.1); SODIUM LEVEL 132 MMOL/L (136-145); TOTAL PROTEIN 6.9 G/DL (5.7-8.2)
[2024-07-31 10:50] VITALS: BP 114/76; O2SAT 99
[2024-07-31] MEDS: POTASSIUM CHLORIDE 10MEQ SR TABLET PO ONE (11:00)
[2024-07-31] MEDS: dexAMETHasone 4 MG TAB PO SCH (11:01)
[2024-07-31] MEDS: PROCHLORPERAZINE 5MG TAB PO SCH (11:01)
[2024-07-31] MEDS: NS 50 ML IV PRN (12:04)
[2024-07-31] MEDS: SODIUM CHLORIDE 0.9% INJ 10 ML SYR IV PRN (12:40)
[2024-08-13] MEDS: SODIUM CHLORIDE 0.9% INJ 10 ML SYR IV PRN (11:33)
[2024-08-13 11:37] LABS: BASO # 0.1 10^3/uL (0.0-0.2); BASO % 1.5 % (0.0-1.0); EOS % 0.2 % (0.0-3.0); HEMATOCRIT 35.5 % (42.0-52.0); LYMPH # 1.4 10^3/uL (1.5-5.0); LYMPH % 23.2 % (24.0-44.0); MEAN CORPUSCULAR HGB CONC 33.8 g/dl (32.0-36.5); MEAN CORPUSCULAR VOLUME 82.8 fl (80.0-96.0); MONO # 1.3 10^3/uL (0.0-0.8); MONO % 21.7 % (2.0-8.0); NEUTROPHILS # 3.2 10^3/uL (1.5-8.5); NEUTROPHILS % 52.7 % (36.0-66.0); PLATELET COUNT, AUTOMATED 530 10^3/uL (150-450); RED BLOOD COUNT 4.29 10^6/uL (4.30-6.10)
[2024-08-13 12:09] LABS: MAGNESIUM LEVEL 1.6 MG/DL (1.8-2.4)
[2024-08-13 12:10] LABS: ALBUMIN 2.9 G/DL (3.2-5.2); BILIRUBIN,TOTAL 0.4 MG/DL (0.3-1.2); CALCIUM LEVEL 9.4 MG/DL (8.3-10.6); CREATININE FOR GFR 1.46 MG/DL (0.70-1.30); GLOMERULAR FILTRATION RATE 51.4 (>49); POTASSIUM SERUM 3.8 MMOL/L (3.5-5.1); TOTAL PROTEIN 6.9 G/DL (5.7-8.2)
[2024-08-13 12:13] LABS: FREE T3 2.6 PG/ML (2.3-4.2); FREE T4 1.21 NG/DL (0.89-1.76); THYROID STIMULATING HORMONE 6.027 uIU/ML (0.55-4.78)
[2024-08-14 10:49] VITALS: BP 91/70; O2SAT 100
[2024-08-14] MEDS: NS (Normal Saline) 0.9% 1,000 ML IV ONE (11:47)
[2024-08-14] MEDS: MAG SULF 1GM/100ML (MAG RUN) 100 ML IV SCH (11:51)
[2024-08-14] MEDS: dexAMETHasone 4 MG TAB PO SCH (11:51)
[2024-08-14] MEDS: PROCHLORPERAZINE 5MG TAB PO SCH (11:52)
[2024-08-14] MEDS: NS 50 ML IV PRN (14:08)
[2024-08-14] MEDS: PEMBROLIZUMAB 200 MG in NS 100 ML IV SCH (15:10)
[2024-08-14] MEDS: SODIUM CHLORIDE 0.9% INJ 10 ML SYR IV PRN (15:41)
[2024-08-20] MEDS: SODIUM CHLORIDE 0.9% INJ 10 ML SYR IV PRN (11:23)
[2024-08-20 11:44] LABS: BASO # 0.1 10^3/uL (0.0-0.2); BASO % 1.3 % (0.0-1.0); HEMATOCRIT 35.4 % (42.0-52.0); HEMOGLOBIN 11.5 g/dl (13.5-17.5); LYMPH % 11.9 % (24.0-44.0); MEAN CORPUSCULAR HEMOGLOBIN 27.8 pg (27.0-33.0); MEAN CORPUSCULAR HGB CONC 32.5 g/dl (32.0-36.5); MEAN CORPUSCULAR VOLUME 85.5 fl (80.0-96.0); NEUTROPHILS # 6.4 10^3/uL (1.5-8.5); NEUTROPHILS % 74.1 % (36.0-66.0); PLATELET COUNT, AUTOMATED 351 10^3/uL (150-450); RED BLOOD COUNT 4.14 10^6/uL (4.30-6.10); WHITE BLOOD COUNT 8.6 10^3/uL (4.0-10.0)
[2024-08-20 12:12] LABS: ALBUMIN 2.8 G/DL (3.2-5.2); ALKALINE PHOSPHATASE 73 U/L (40-129); ALT/SGPT 14 U/L (7.0-40); AST/SGOT 16 U/L (<34); BILIRUBIN,TOTAL 0.5 MG/DL (0.3-1.2); BLOOD UREA NITROGEN 11 MG/DL (9-23); CALCIUM LEVEL 9.4 MG/DL (8.3-10.6); CARBON DIOXIDE LEVEL 28 MMOL/L (20-31); CHLORIDE LEVEL 101 MMOL/L (98-107); CREATININE FOR GFR 1.01 MG/DL (0.70-1.30); GLOMERULAR FILTRATION RATE > 60.0 (>49); GLUCOSE, FASTING 130 MG/DL (74-106); MAGNESIUM LEVEL 1.6 MG/DL (1.8-2.4); SODIUM LEVEL 136 MMOL/L (136-145); TOTAL PROTEIN 6.4 G/DL (5.7-8.2)
[2024-08-20 12:17] LABS: FREE T4 0.85 NG/DL (0.89-1.76)
[2024-08-20 12:20] LABS: FREE T3 2.4 PG/ML (2.3-4.2)
[2024-08-21 11:56] VITALS: BP 102/66; O2SAT 96
[2024-08-21] MEDS: PROCHLORPERAZINE 5MG TAB PO SCH (12:22)
[2024-08-21] MEDS: dexAMETHasone 4 MG TAB PO SCH (12:22)
[2024-08-21] MEDS: MAG SULF 1GM/100ML (MAG RUN) 100 ML IV SCH (13:03)
[2024-08-21] MEDS: SODIUM CHLORIDE 0.9% INJ 10 ML SYR IV PRN (15:32)
[2024-09-03] MEDS: SODIUM CHLORIDE 0.9% INJ 10 ML SYR IV PRN (11:05)
[2024-09-03 11:25] LABS: BASO # 0.2 10^3/uL (0.0-0.2); BASO % 2.4 % (0.0-1.0); EOS # 0.1 10^3/uL (0.0-0.5); HEMATOCRIT 36.7 % (42.0-52.0); HEMOGLOBIN 12.4 g/dl (13.5-17.5); LYMPH # 1.3 10^3/uL (1.5-5.0); LYMPH % 20.7 % (24.0-44.0); MEAN CORPUSCULAR HEMOGLOBIN 27.9 pg (27.0-33.0); MEAN CORPUSCULAR HGB CONC 33.8 g/dl (32.0-36.5); MEAN CORPUSCULAR VOLUME 82.7 fl (80.0-96.0); MONO # 0.9 10^3/uL (0.0-0.8); MONO % 14.5 % (2.0-8.0); NEUTROPHILS # 3.7 10^3/uL (1.5-8.5); NEUTROPHILS % 60.9 % (36.0-66.0); PLATELET COUNT, AUTOMATED 449 10^3/uL (150-450); RED BLOOD COUNT 4.44 10^6/uL (4.30-6.10); WHITE BLOOD COUNT 6.1 10^3/uL (4.0-10.0)
[2024-09-03 11:56] LABS: MAGNESIUM LEVEL 1.8 MG/DL (1.8-2.4)
[2024-09-03 11:57] LABS: ALBUMIN 3.2 G/DL (3.2-5.2); BILIRUBIN,TOTAL 0.8 MG/DL (0.3-1.2); CREATININE FOR GFR 1.55 MG/DL (0.70-1.30); POTASSIUM SERUM 4.1 MMOL/L (3.5-5.1); TOTAL PROTEIN 6.7 G/DL (5.7-8.2)
[2024-09-03 12:00] LABS: FREE T3 1.8 PG/ML (2.3-4.2)
[2024-09-03 12:01] LABS: FREE T4 0.62 NG/DL (0.89-1.76)
[2024-09-04 11:04] VITALS: BP 96/70; O2SAT 97
[2024-09-04] MEDS: PROCHLORPERAZINE 5MG TAB PO SCH (12:19)
[2024-09-04] MEDS: dexAMETHasone 4 MG TAB PO SCH (12:19)
[2024-09-04] MEDS: PEMBROLIZUMAB 200 MG in NS 100 ML IV SCH (13:51)
[2024-09-10] MEDS: SODIUM CHLORIDE 0.9% INJ 10 ML SYR IV PRN (11:18)
[2024-09-10 11:32] LABS: BASO # 0.1 10^3/uL (0.0-0.2); BASO % 1.8 % (0.0-1.0); EOS % 0.3 % (0.0-3.0); HEMATOCRIT 36.6 % (42.0-52.0); HEMOGLOBIN 12.1 g/dl (13.5-17.5); LYMPH # 1.2 10^3/uL (1.5-5.0); LYMPH % 18.8 % (24.0-44.0); MEAN CORPUSCULAR HEMOGLOBIN 28.5 pg (27.0-33.0); MEAN CORPUSCULAR HGB CONC 33.1 g/dl (32.0-36.5); MEAN CORPUSCULAR VOLUME 86.3 fl (80.0-96.0); MONO # 0.8 10^3/uL (0.0-0.8); MONO % 13.3 % (2.0-8.0); NEUTROPHILS # 4.1 10^3/uL (1.5-8.5); NEUTROPHILS % 65.2 % (36.0-66.0); PLATELET COUNT, AUTOMATED 361 10^3/uL (150-450); RED BLOOD COUNT 4.24 10^6/uL (4.30-6.10); WHITE BLOOD COUNT 6.2 10^3/uL (4.0-10.0)
[2024-09-10 11:58] LABS: ALBUMIN 3.3 G/DL (3.2-5.2); ALKALINE PHOSPHATASE 68 U/L (40-129); ALT/SGPT 13 U/L (7.0-40); AST/SGOT 16 U/L (<34); BILIRUBIN,TOTAL 0.7 MG/DL (0.3-1.2); BLOOD UREA NITROGEN 13 MG/DL (9-23); CALCIUM LEVEL 9.7 MG/DL (8.3-10.6); CARBON DIOXIDE LEVEL 28 MMOL/L (20-31); CHLORIDE LEVEL 104 MMOL/L (98-107); CREATININE FOR GFR 1.15 MG/DL (0.70-1.30); GLOMERULAR FILTRATION RATE > 60.0 (>49); GLUCOSE, FASTING 108 MG/DL (74-106); POTASSIUM SERUM 3.9 MMOL/L (3.5-5.1); SODIUM LEVEL 139 MMOL/L (136-145); TOTAL PROTEIN 6.6 G/DL (5.7-8.2)
[2024-09-11] MEDS: dexAMETHasone 4 MG TAB PO SCH (11:38)
[2024-09-11] MEDS: PROCHLORPERAZINE 5MG TAB PO SCH (11:39)
[2024-09-11 12:37] VITALS: BP 104/65; O2SAT 95
[2024-09-11] MEDS: SODIUM CHLORIDE 0.9% INJ 10 ML SYR IV PRN (13:34)
[2024-09-24] MEDS: SODIUM CHLORIDE 0.9% INJ 10 ML SYR IV PRN (11:20)
[2024-09-24 11:27] LABS: BASO # 0.1 10^3/uL (0.0-0.2); BASO % 2.1 % (0.0-1.0); EOS % 0.9 % (0.0-3.0); HEMOGLOBIN 12.2 g/dl (13.5-17.5); LYMPH # 1.2 10^3/uL (1.5-5.0); LYMPH % 25.1 % (24.0-44.0); MEAN CORPUSCULAR HEMOGLOBIN 28.7 pg (27.0-33.0); MEAN CORPUSCULAR HGB CONC 33.9 g/dl (32.0-36.5); MEAN CORPUSCULAR VOLUME 84.7 fl (80.0-96.0); MONO # 0.6 10^3/uL (0.0-0.8); MONO % 12.2 % (2.0-8.0); NEUTROPHILS # 2.8 10^3/uL (1.5-8.5); NEUTROPHILS % 59.1 % (36.0-66.0); PLATELET COUNT, AUTOMATED 439 10^3/uL (150-450); RED BLOOD COUNT 4.25 10^6/uL (4.30-6.10); WHITE BLOOD COUNT 4.7 10^3/uL (4.0-10.0)
[2024-09-24 11:58] LABS: ALBUMIN 3.1 G/DL (3.2-5.2); ALKALINE PHOSPHATASE 80 U/L (40-129); ALT/SGPT 12 U/L (7.0-40); AST/SGOT 18 U/L (<34); BILIRUBIN,TOTAL 0.6 MG/DL (0.3-1.2); BLOOD UREA NITROGEN 11 MG/DL (9-23); CALCIUM LEVEL 9.2 MG/DL (8.3-10.6); CARBON DIOXIDE LEVEL 28 MMOL/L (20-31); CHLORIDE LEVEL 96 MMOL/L (98-107); CREATININE FOR GFR 1.26 MG/DL (0.70-1.30); GLOMERULAR FILTRATION RATE > 60.0 (>49); GLUCOSE, FASTING 132 MG/DL (74-106); SODIUM LEVEL 135 MMOL/L (136-145); TOTAL PROTEIN 7.2 G/DL (5.7-8.2)
[2024-09-24 12:10] LABS: MAGNESIUM LEVEL 1.6 MG/DL (1.8-2.4)
[2024-09-24 12:14] LABS: FREE T4 0.6 NG/DL (0.89-1.76)
[2024-09-24 12:16] LABS: FREE T3 1.8 PG/ML (2.3-4.2)
[2024-09-25 11:08] VITALS: BP 104/71; O2SAT 95
[2024-09-25] MEDS: MAG SULF 1GM/100ML (MAG RUN) 100 ML IV ONE (11:43)
[2024-09-25] MEDS: NS 50 ML IV PRN (11:43)
[2024-09-25] MEDS: PROCHLORPERAZINE 5MG TAB PO SCH (11:44)
[2024-09-25] MEDS: KCL 10MEQ/100ML SWI (KRUN) 100 ML IV ONE (11:44)
[2024-09-25] MEDS: dexAMETHasone 4 MG TAB PO SCH (11:44)
[2024-09-25] MEDS: SODIUM CHLORIDE 0.9% INJ 10 ML SYR IV PRN (12:50)
[2024-09-26 13:50] VITALS: BP 104/66; O2SAT 98
[2024-09-26] MEDS: dexAMETHasone 4 MG TAB PO SCH (13:58)
[2024-09-26] MEDS: PROCHLORPERAZINE 5MG TAB PO SCH (13:59)
[2024-09-26] MEDS: NS 50 ML IV PRN (14:40)
[2024-09-26] MEDS: PEMBROLIZUMAB 200 MG in NS 100 ML IV SCH (15:45)
[2024-09-26] MEDS: SODIUM CHLORIDE 0.9% INJ 10 ML SYR IV PRN (16:16)
[2024-10-01 11:41] LABS: BASO # 0.1 10^3/uL (0.0-0.2); BASO % 0.7 % (0.0-1.0); EOS % 0.1 % (0.0-3.0); HEMATOCRIT 37.3 % (42.0-52.0); HEMOGLOBIN 12.5 g/dl (13.5-17.5); LYMPH # 1.4 10^3/uL (1.5-5.0); LYMPH % 12.7 % (24.0-44.0); MEAN CORPUSCULAR HEMOGLOBIN 28.7 pg (27.0-33.0); MEAN CORPUSCULAR HGB CONC 33.5 g/dl (32.0-36.5); MEAN CORPUSCULAR VOLUME 85.6 fl (80.0-96.0); MONO # 1.5 10^3/uL (0.0-0.8); MONO % 13.9 % (2.0-8.0); NEUTROPHILS # 7.8 10^3/uL (1.5-8.5); PLATELET COUNT, AUTOMATED 369 10^3/uL (150-450); RED BLOOD COUNT 4.36 10^6/uL (4.30-6.10); WHITE BLOOD COUNT 10.8 10^3/uL (4.0-10.0)
[2024-10-01] MEDS: SODIUM CHLORIDE 0.9% INJ 10 ML SYR IV PRN (11:43)
[2024-10-01 12:14] LABS: ALBUMIN 3.1 G/DL (3.2-5.2); ALKALINE PHOSPHATASE 73 U/L (40-129); ALT/SGPT 19 U/L (7.0-40); AST/SGOT 23 U/L (<34); BILIRUBIN,TOTAL 0.9 MG/DL (0.3-1.2); BLOOD UREA NITROGEN 16 MG/DL (9-23); CALCIUM LEVEL 9.4 MG/DL (8.3-10.6); CARBON DIOXIDE LEVEL 27 MMOL/L (20-31); CHLORIDE LEVEL 98 MMOL/L (98-107); CREATININE FOR GFR 1.25 MG/DL (0.70-1.30); GLOMERULAR FILTRATION RATE > 60.0 (>49); GLUCOSE, FASTING 130 MG/DL (74-106); POTASSIUM SERUM 3.4 MMOL/L (3.5-5.1); SODIUM LEVEL 134 MMOL/L (136-145); TOTAL PROTEIN 7.1 G/DL (5.7-8.2)
[2024-10-01 12:35] LABS: FREE T3 1.6 PG/ML (2.3-4.2); FREE T4 0.8 NG/DL (0.89-1.76); MAGNESIUM LEVEL 1.8 MG/DL (1.8-2.4)
[2024-10-02 11:30] VITALS: BP 113/73; O2SAT 99
[2024-10-02] MEDS: KCL 10MEQ/100ML SWI (KRUN) 100 ML IV ONE (11:42)
[2024-10-02] MEDS: dexAMETHasone 4 MG TAB PO SCH (11:43)
[2024-10-02] MEDS: PROCHLORPERAZINE 5MG TAB PO SCH (11:43)
[2024-10-02] MEDS: NS 50 ML IV PRN (11:43)
[2024-10-02] MEDS: SODIUM CHLORIDE 0.9% INJ 10 ML SYR IV PRN (13:20)
[2024-10-15] MEDS: SODIUM CHLORIDE 0.9% INJ 10 ML SYR IV PRN (11:14)
[2024-10-15 11:20] LABS: BASO # 0.1 10^3/uL (0.0-0.2); BASO % 2.1 % (0.0-1.0); EOS % 0.6 % (0.0-3.0); HEMATOCRIT 35.8 % (42.0-52.0); HEMOGLOBIN 11.9 g/dl (13.5-17.5); LYMPH # 1.6 10^3/uL (1.5-5.0); LYMPH % 24.7 % (24.0-44.0); MEAN CORPUSCULAR HEMOGLOBIN 28.7 pg (27.0-33.0); MEAN CORPUSCULAR HGB CONC 33.2 g/dl (32.0-36.5); MEAN CORPUSCULAR VOLUME 86.5 fl (80.0-96.0); MONO # 0.6 10^3/uL (0.0-0.8); MONO % 8.9 % (2.0-8.0); NEUTROPHILS % 62.9 % (36.0-66.0); PLATELET COUNT, AUTOMATED 444 10^3/uL (150-450); RED BLOOD COUNT 4.14 10^6/uL (4.30-6.10); WHITE BLOOD COUNT 6.3 10^3/uL (4.0-10.0)
[2024-10-15 11:55] LABS: ALBUMIN 3.2 G/DL (3.2-5.2); ALKALINE PHOSPHATASE 84 U/L (40-129); ALT/SGPT 26 U/L (7.0-40); AST/SGOT 23 U/L (<34); BILIRUBIN,TOTAL 0.4 MG/DL (0.3-1.2); BLOOD UREA NITROGEN 9 MG/DL (9-23); CALCIUM LEVEL 9.6 MG/DL (8.3-10.6); CARBON DIOXIDE LEVEL 28 MMOL/L (20-31); CHLORIDE LEVEL 100 MMOL/L (98-107); CREATININE FOR GFR 1.09 MG/DL (0.70-1.30); GLOMERULAR FILTRATION RATE > 60.0 (>49); GLUCOSE, FASTING 130 MG/DL (74-106); POTASSIUM SERUM 3.5 MMOL/L (3.5-5.1); SODIUM LEVEL 139 MMOL/L (136-145)
[2024-10-15 12:10] LABS: FREE T4 0.95 NG/DL (0.89-1.76)
[2024-10-15 12:12] LABS: FREE T3 2.1 PG/ML (2.3-4.2)
[2024-10-17 10:47] VITALS: BP 135/87; O2SAT 95
[2024-10-17] MEDS: dexAMETHasone 4 MG TAB PO SCH (11:30)
[2024-10-17] MEDS: PROCHLORPERAZINE 5MG TAB PO SCH (11:30)
[2024-10-17] MEDS: NS 50 ML IV PRN (11:31)
[2024-10-17] MEDS: MAG SULF 1GM/100ML (MAG RUN) 100 ML IV ONE (11:32)
[2024-10-17] MEDS: PEMBROLIZUMAB 200 MG in NS 100 ML IV SCH (13:25)
[2024-10-17] MEDS: SODIUM CHLORIDE 0.9% INJ 10 ML SYR IV PRN (13:58)
[2024-10-23 11:42] VITALS: BP 114/77; O2SAT 98
[2024-10-23 12:14] LABS: BASO # 0.1 10^3/uL (0.0-0.2); BASO % 1.4 % (0.0-1.0); EOS % 0.1 % (0.0-3.0); HEMATOCRIT 37.3 % (42.0-52.0); HEMOGLOBIN 12.5 g/dl (13.5-17.5); LYMPH # 1.7 10^3/uL (1.5-5.0); LYMPH % 21.3 % (24.0-44.0); MEAN CORPUSCULAR HEMOGLOBIN 28.5 pg (27.0-33.0); MEAN CORPUSCULAR HGB CONC 33.5 g/dl (32.0-36.5); MEAN CORPUSCULAR VOLUME 85.2 fl (80.0-96.0); MONO # 1.1 10^3/uL (0.0-0.8); MONO % 13.9 % (2.0-8.0); NEUTROPHILS # 5.1 10^3/uL (1.5-8.5); NEUTROPHILS % 63.1 % (36.0-66.0); PLATELET COUNT, AUTOMATED 442 10^3/uL (150-450); RED BLOOD COUNT 4.38 10^6/uL (4.30-6.10)
[2024-10-23 12:29] LABS: ALKALINE PHOSPHATASE 95 U/L (40-129); ALT/SGPT 27 U/L (7.0-40); AST/SGOT 33 U/L (<34); BILIRUBIN,TOTAL 0.8 MG/DL (0.3-1.2); BLOOD UREA NITROGEN 13 MG/DL (9-23); CALCIUM LEVEL 9.9 MG/DL (8.3-10.6); CARBON DIOXIDE LEVEL 28 MMOL/L (20-31); CHLORIDE LEVEL 96 MMOL/L (98-107); CREATININE FOR GFR 1.14 MG/DL (0.70-1.30); GLOMERULAR FILTRATION RATE > 60.0 (>49); GLUCOSE, FASTING 118 MG/DL (74-106); POTASSIUM SERUM 3.2 MMOL/L (3.5-5.1); SODIUM LEVEL 134 MMOL/L (136-145); TOTAL PROTEIN 7.7 G/DL (5.7-8.2)
[2024-10-23] MEDS: PROCHLORPERAZINE 5MG TAB PO SCH (13:06)
[2024-10-23] MEDS: dexAMETHasone 4 MG TAB PO SCH (13:07)
[2024-10-23] MEDS: ATROPINE SULF 0.4 MG/ML 1 ML VIAL IVP PRN (13:28)
[2024-10-23] MEDS: NS 50 ML IV PRN (13:31)
[2024-10-23] MEDS: KCL 10MEQ/100ML SWI (KRUN) 100 ML IV ONE (14:18)
[2024-10-23] MEDS: SODIUM CHLORIDE 0.9% INJ 10 ML SYR IV PRN (15:14)
[2024-11-05] MEDS: SODIUM CHLORIDE 0.9% INJ 10 ML SYR IV PRN (11:34)
[2024-11-05 11:41] LABS: BASO # 0.1 10^3/uL (0.0-0.2); BASO % 1.2 % (0.0-1.0); EOS % 0.1 % (0.0-3.0); HEMOGLOBIN 12.6 g/dl (13.5-17.5); LYMPH # 1.4 10^3/uL (1.5-5.0); LYMPH % 18.4 % (24.0-44.0); MEAN CORPUSCULAR HEMOGLOBIN 28.6 pg (27.0-33.0); MEAN CORPUSCULAR VOLUME 81.8 fl (80.0-96.0); MONO # 1.6 10^3/uL (0.0-0.8); MONO % 20.6 % (2.0-8.0); NEUTROPHILS # 4.5 10^3/uL (1.5-8.5); PLATELET COUNT, AUTOMATED 515 10^3/uL (150-450); WHITE BLOOD COUNT 7.5 10^3/uL (4.0-10.0)
[2024-11-05 12:15] LABS: ALBUMIN 3.2 G/DL (3.2-5.2); BILIRUBIN,TOTAL 0.8 MG/DL (0.3-1.2); CALCIUM LEVEL 9.3 MG/DL (8.3-10.6); CREATININE FOR GFR 1.69 MG/DL (0.70-1.30); GLOMERULAR FILTRATION RATE 43.4 (>49); POTASSIUM SERUM 3.2 MMOL/L (3.5-5.1); TOTAL PROTEIN 7.6 G/DL (5.7-8.2)
[2024-11-05 12:30] LABS: FREE T4 1.58 NG/DL (0.89-1.76)
[2024-11-05 12:33] LABS: FREE T3 1.9 PG/ML (2.3-4.2)
[2024-11-06 10:53] VITALS: BP 87/63; O2SAT 94
[2024-11-06] MEDS: KCL 10MEQ/100ML SWI (KRUN) 100 ML IV ONE (11:45)
[2024-11-06] MEDS: NS (Normal Saline) 0.9% 1,000 ML IV ONE (11:45)
[2024-11-06] MEDS: SODIUM CHLORIDE 0.9% INJ 10 ML SYR IV PRN (13:12)
[2024-11-06] MEDS: NS 50 ML IV PRN (13:13)
[2024-11-26] MEDS: SODIUM CHLORIDE 0.9% INJ 10 ML SYR IV PRN (11:12)
[2024-11-26 11:27] LABS: BASO # 0.1 10^3/uL (0.0-0.2); BASO % 1.6 % (0.0-1.0); EOS # 0.3 10^3/uL (0.0-0.5); EOS % 4.3 % (0.0-3.0); HEMATOCRIT 31.9 % (42.0-52.0); HEMOGLOBIN 10.4 g/dl (13.5-17.5); LYMPH # 1.1 10^3/uL (1.5-5.0); MEAN CORPUSCULAR HEMOGLOBIN 28.8 pg (27.0-33.0); MEAN CORPUSCULAR HGB CONC 32.6 g/dl (32.0-36.5); MEAN CORPUSCULAR VOLUME 88.4 fl (80.0-96.0); MONO # 0.8 10^3/uL (0.0-0.8); MONO % 11.6 % (2.0-8.0); NEUTROPHILS # 4.7 10^3/uL (1.5-8.5); NEUTROPHILS % 67.4 % (36.0-66.0); PLATELET COUNT, AUTOMATED 303 10^3/uL (150-450); RED BLOOD COUNT 3.61 10^6/uL (4.30-6.10)
[2024-11-26 12:01] LABS: ALBUMIN 2.9 G/DL (3.2-5.2); BILIRUBIN,TOTAL 0.7 MG/DL (0.3-1.2); CALCIUM LEVEL 9.4 MG/DL (8.3-10.6); CREATININE FOR GFR 1.32 MG/DL (0.70-1.30); GLOMERULAR FILTRATION RATE 57.8 (>49); POTASSIUM SERUM 3.6 MMOL/L (3.5-5.1); TOTAL PROTEIN 6.9 G/DL (5.7-8.2)
[2024-11-26 12:03] LABS: FREE T4 1.45 NG/DL (0.89-1.76)
[2024-11-26 13:02] LABS: FREE T3 2.6 PG/ML (2.3-4.2); THYROID STIMULATING HORMONE 5.198 uIU/ML (0.55-4.78)
[2024-11-27 10:57] VITALS: BP 102/69; O2SAT 96
[2024-12-03 11:26] LABS: BASO # 0.1 10^3/uL (0.0-0.2); BASO % 1.9 % (0.0-1.0); EOS # 0.7 10^3/uL (0.0-0.5); EOS % 9.6 % (0.0-3.0); LYMPH # 1.1 10^3/uL (1.5-5.0); LYMPH % 16.1 % (24.0-44.0); MEAN CORPUSCULAR HEMOGLOBIN 28.4 pg (27.0-33.0); MEAN CORPUSCULAR HGB CONC 32.3 g/dl (32.0-36.5); MEAN CORPUSCULAR VOLUME 88.1 fl (80.0-96.0); MONO # 0.5 10^3/uL (0.0-0.8); MONO % 7.2 % (2.0-8.0); NEUTROPHILS # 4.4 10^3/uL (1.5-8.5); NEUTROPHILS % 64.3 % (36.0-66.0); PLATELET COUNT, AUTOMATED 423 10^3/uL (150-450); RED BLOOD COUNT 3.52 10^6/uL (4.30-6.10); WHITE BLOOD COUNT 6.9 10^3/uL (4.0-10.0)
[2024-12-03 11:58] LABS: MAGNESIUM LEVEL 1.7 MG/DL (1.8-2.4)
[2024-12-03 12:01] LABS: ALBUMIN 2.6 G/DL (3.2-5.2); ALKALINE PHOSPHATASE 96 U/L (40-129); ALT/SGPT 15 U/L (7.0-40); AST/SGOT 12 U/L (<34); BILIRUBIN,TOTAL 0.3 MG/DL (0.3-1.2); BLOOD UREA NITROGEN 12 MG/DL (9-23); CALCIUM LEVEL 9.1 MG/DL (8.3-10.6); CARBON DIOXIDE LEVEL 24 MMOL/L (20-31); CHLORIDE LEVEL 107 MMOL/L (98-107); CREATININE FOR GFR 1.21 MG/DL (0.70-1.30); GLOMERULAR FILTRATION RATE > 60.0 (>49); GLUCOSE, FASTING 112 MG/DL (74-106); POTASSIUM SERUM 3.8 MMOL/L (3.5-5.1); SODIUM LEVEL 141 MMOL/L (136-145); THYROID STIMULATING HORMONE 18.83 uIU/ML (0.55-4.78); TOTAL PROTEIN 6.4 G/DL (5.7-8.2)
[2024-12-03 12:02] LABS: FREE T3 2.7 PG/ML (2.3-4.2)
[2024-12-04 08:52] VITALS: BP 114/71; O2SAT 96
[2024-12-04] MEDS: MAG SULF 1GM/100ML (MAG RUN) 100 ML IV SCH (09:42)
[2024-12-04] MEDS: PROCHLORPERAZINE 5MG TAB PO SCH (10:37)
[2024-12-04] MEDS: dexAMETHasone 4 MG TAB PO SCH (10:37)
[2024-12-04] MEDS: PEMBROLIZUMAB 200 MG in NS 100 ML IV SCH (12:54)
[2024-12-04] MEDS: SODIUM CHLORIDE 0.9% INJ 10 ML SYR IV PRN (13:26)
[2024-12-11 11:05] VITALS: BP 110/66; O2SAT 98
[2024-12-11 11:22] LABS: BASO # 0.1 10^3/uL (0.0-0.2); BASO % 1.2 % (0.0-1.0); EOS # 0.5 10^3/uL (0.0-0.5); EOS % 4.7 % (0.0-3.0); HEMATOCRIT 34.3 % (42.0-52.0); LYMPH # 1.3 10^3/uL (1.5-5.0); LYMPH % 11.7 % (24.0-44.0); MEAN CORPUSCULAR HEMOGLOBIN 28.3 pg (27.0-33.0); MEAN CORPUSCULAR HGB CONC 32.1 g/dl (32.0-36.5); MEAN CORPUSCULAR VOLUME 88.2 fl (80.0-96.0); MONO # 0.7 10^3/uL (0.0-0.8); MONO % 6.2 % (2.0-8.0); NEUTROPHILS # 8.3 10^3/uL (1.5-8.5); NEUTROPHILS % 75.7 % (36.0-66.0); PLATELET COUNT, AUTOMATED 346 10^3/uL (150-450); RED BLOOD COUNT 3.89 10^6/uL (4.30-6.10); WHITE BLOOD COUNT 10.9 10^3/uL (4.0-10.0)
[2024-12-11 11:51] LABS: ALBUMIN 3.1 G/DL (3.2-5.2); ALKALINE PHOSPHATASE 94 U/L (40-129); ALT/SGPT 11 U/L (7.0-40); AST/SGOT 11 U/L (<34); BILIRUBIN,TOTAL 0.4 MG/DL (0.3-1.2); BLOOD UREA NITROGEN 18 MG/DL (9-23); CARBON DIOXIDE LEVEL 27 MMOL/L (20-31); CHLORIDE LEVEL 105 MMOL/L (98-107); CREATININE FOR GFR 1.13 MG/DL (0.70-1.30); GLOMERULAR FILTRATION RATE > 60.0 (>49); GLUCOSE, FASTING 120 MG/DL (74-106); MAGNESIUM LEVEL 1.8 MG/DL (1.8-2.4); POTASSIUM SERUM 3.8 MMOL/L (3.5-5.1); SODIUM LEVEL 142 MMOL/L (136-145); TOTAL PROTEIN 6.8 G/DL (5.7-8.2)
[2024-12-11] MEDS: PROCHLORPERAZINE 5MG TAB PO SCH (11:59)
[2024-12-11] MEDS: dexAMETHasone 4 MG TAB PO SCH (11:59)
[2024-12-11] MEDS: SODIUM CHLORIDE 0.9% INJ 10 ML SYR IV PRN (13:32)
[2024-12-24] MEDS: SODIUM CHLORIDE 0.9% INJ 10 ML SYR IV PRN (11:06)
[2024-12-24 11:19] LABS: BASO # 0.1 10^3/uL (0.0-0.2); BASO % 1.3 % (0.0-1.0); EOS # 0.4 10^3/uL (0.0-0.5); EOS % 4.8 % (0.0-3.0); HEMATOCRIT 33.6 % (42.0-52.0); HEMOGLOBIN 10.6 g/dl (13.5-17.5); LYMPH # 1.3 10^3/uL (1.5-5.0); LYMPH % 15.3 % (24.0-44.0); MEAN CORPUSCULAR HEMOGLOBIN 27.3 pg (27.0-33.0); MEAN CORPUSCULAR HGB CONC 31.5 g/dl (32.0-36.5); MEAN CORPUSCULAR VOLUME 86.6 fl (80.0-96.0); MONO # 0.6 10^3/uL (0.0-0.8); MONO % 6.9 % (2.0-8.0); NEUTROPHILS % 71.3 % (36.0-66.0); PLATELET COUNT, AUTOMATED 335 10^3/uL (150-450); RED BLOOD COUNT 3.88 10^6/uL (4.30-6.10); WHITE BLOOD COUNT 8.4 10^3/uL (4.0-10.0)
[2024-12-24 11:53] LABS: MAGNESIUM LEVEL 1.9 MG/DL (1.8-2.4)
[2024-12-24 11:56] LABS: ALBUMIN 3.1 G/DL (3.2-5.2); BILIRUBIN,TOTAL 0.4 MG/DL (0.3-1.2); CALCIUM LEVEL 9.1 MG/DL (8.3-10.6); CREATININE FOR GFR 1.28 MG/DL (0.70-1.30); GLOMERULAR FILTRATION RATE 59.9 (>49); TOTAL PROTEIN 6.8 G/DL (5.7-8.2)
[2024-12-24 11:58] LABS: FREE T4 1.47 NG/DL (0.89-1.76); THYROID STIMULATING HORMONE 7.836 uIU/ML (0.55-4.78)
[2024-12-24 12:03] LABS: FREE T3 2.6 PG/ML (2.3-4.2)
[2024-12-25 11:35] VITALS: BP 121/82; O2SAT 98
[2024-12-25] MEDS: dexAMETHasone 4 MG TAB PO SCH (12:15)
[2024-12-25] MEDS: PROCHLORPERAZINE 5MG TAB PO SCH (12:15)
[2024-12-25] MEDS: PEMBROLIZUMAB 200 MG in NS 100 ML IV SCH (14:13)
[2024-12-25] MEDS: SODIUM CHLORIDE 0.9% INJ 10 ML SYR IV PRN (14:44)
[2024-12-31] MEDS: SODIUM CHLORIDE 0.9% INJ 10 ML SYR IV PRN (11:04)
[2024-12-31 11:13] LABS: BASO # 0.2 10^3/uL (0.0-0.2); BASO % 1.4 % (0.0-1.0); EOS # 0.4 10^3/uL (0.0-0.5); EOS % 3.6 % (0.0-3.0); HEMATOCRIT 35.9 % (42.0-52.0); HEMOGLOBIN 11.6 g/dl (13.5-17.5); LYMPH # 1.4 10^3/uL (1.5-5.0); MEAN CORPUSCULAR HEMOGLOBIN 27.5 pg (27.0-33.0); MEAN CORPUSCULAR HGB CONC 32.3 g/dl (32.0-36.5); MEAN CORPUSCULAR VOLUME 85.1 fl (80.0-96.0); MONO # 0.8 10^3/uL (0.0-0.8); MONO % 7.8 % (2.0-8.0); NEUTROPHILS # 7.7 10^3/uL (1.5-8.5); NEUTROPHILS % 73.6 % (36.0-66.0); PLATELET COUNT, AUTOMATED 458 10^3/uL (150-450); RED BLOOD COUNT 4.22 10^6/uL (4.30-6.10); WHITE BLOOD COUNT 10.4 10^3/uL (4.0-10.0)
[2024-12-31 11:43] LABS: ALBUMIN 3.3 G/DL (3.2-5.2); ALKALINE PHOSPHATASE 101 U/L (40-129); ALT/SGPT < 9 U/L (7.0-40); AST/SGOT 13 U/L (<34); BILIRUBIN,TOTAL 0.5 MG/DL (0.3-1.2); BLOOD UREA NITROGEN 20 MG/DL (9-23); CALCIUM LEVEL 9.2 MG/DL (8.3-10.6); CARBON DIOXIDE LEVEL 23 MMOL/L (20-31); CHLORIDE LEVEL 104 MMOL/L (98-107); GLOMERULAR FILTRATION RATE > 60.0 (>49); GLUCOSE, FASTING 88 MG/DL (74-106); POTASSIUM SERUM 4.2 MMOL/L (3.5-5.1); SODIUM LEVEL 138 MMOL/L (136-145); TOTAL PROTEIN 6.9 G/DL (5.7-8.2)
[2024-12-31 11:59] LABS: FREE T4 1.64 NG/DL (0.89-1.76); THYROID STIMULATING HORMONE 5.926 uIU/ML (0.55-4.78)
[2024-12-31 12:01] LABS: FREE T3 2.7 PG/ML (2.3-4.2)
[2025-01-01 10:49] VITALS: BP 110/74; O2SAT 99
[2025-01-01] MEDS: PROCHLORPERAZINE 5MG TAB PO SCH (11:09)
[2025-01-01] MEDS: dexAMETHasone 4 MG TAB PO SCH (11:09)
[2025-01-01] MEDS: SODIUM CHLORIDE 0.9% INJ 10 ML SYR IV PRN (12:32)
[2025-01-14] MEDS: SODIUM CHLORIDE 0.9% INJ 10 ML SYR IV PRN (11:03)
[2025-01-14 11:04] LABS: BASO # 0.1 10^3/uL (0.0-0.2); BASO % 1.5 % (0.0-1.0); EOS # 0.3 10^3/uL (0.0-0.5); EOS % 2.7 % (0.0-3.0); HEMATOCRIT 33.8 % (42.0-52.0); HEMOGLOBIN 11.1 g/dl (13.5-17.5); LYMPH # 1.3 10^3/uL (1.5-5.0); LYMPH % 13.6 % (24.0-44.0); MEAN CORPUSCULAR HEMOGLOBIN 27.6 pg (27.0-33.0); MEAN CORPUSCULAR HGB CONC 32.8 g/dl (32.0-36.5); MEAN CORPUSCULAR VOLUME 84.1 fl (80.0-96.0); MONO # 0.8 10^3/uL (0.0-0.8); MONO % 8.4 % (2.0-8.0); NEUTROPHILS % 73.3 % (36.0-66.0); PLATELET COUNT, AUTOMATED 442 10^3/uL (150-450); RED BLOOD COUNT 4.02 10^6/uL (4.30-6.10); WHITE BLOOD COUNT 9.6 10^3/uL (4.0-10.0)
[2025-01-14 11:38] LABS: MAGNESIUM LEVEL 1.9 MG/DL (1.8-2.4)
[2025-01-14 11:39] LABS: ALKALINE PHOSPHATASE 87 U/L (40-129); ALT/SGPT 10 U/L (7.0-40); AST/SGOT 11 U/L (<34); BILIRUBIN,TOTAL 0.4 MG/DL (0.3-1.2); BLOOD UREA NITROGEN 16 MG/DL (9-23); CALCIUM LEVEL 9.1 MG/DL (8.3-10.6); CARBON DIOXIDE LEVEL 23 MMOL/L (20-31); CHLORIDE LEVEL 105 MMOL/L (98-107); CREATININE FOR GFR 1.19 MG/DL (0.70-1.30); GLOMERULAR FILTRATION RATE > 60.0 (>49); GLUCOSE, FASTING 139 MG/DL (74-106); POTASSIUM SERUM 3.7 MMOL/L (3.5-5.1); SODIUM LEVEL 137 MMOL/L (136-145); TOTAL PROTEIN 6.9 G/DL (5.7-8.2)
[2025-01-14 11:42] LABS: FREE T3 2.9 PG/ML (2.3-4.2); FREE T4 1.87 NG/DL (0.89-1.76)
[2025-01-14 11:43] LABS: THYROID STIMULATING HORMONE 2.2 uIU/ML (0.55-4.78)
[2025-01-16 09:56] VITALS: BP 119/76; O2SAT 94
[2025-01-16] MEDS: PROCHLORPERAZINE 5MG TAB PO SCH (10:35)
[2025-01-16] MEDS: dexAMETHasone 4 MG TAB PO SCH (10:35)
[2025-01-16] MEDS: PEMBROLIZUMAB 200 MG in NS 100 ML IV SCH (12:25)
[2025-01-16] MEDS: SODIUM CHLORIDE 0.9% INJ 10 ML SYR IV PRN (12:57)
[2025-01-21] MEDS: SODIUM CHLORIDE 0.9% INJ 10 ML SYR IV PRN (11:26)
[2025-01-21 11:30] LABS: BASO # 0.2 10^3/uL (0.0-0.2); EOS # 0.2 10^3/uL (0.0-0.5); EOS % 1.2 % (0.0-3.0); HEMATOCRIT 36.9 % (42.0-52.0); HEMOGLOBIN 12.1 g/dl (13.5-17.5); LYMPH # 1.4 10^3/uL (1.5-5.0); LYMPH % 9.4 % (24.0-44.0); MEAN CORPUSCULAR HEMOGLOBIN 27.2 pg (27.0-33.0); MEAN CORPUSCULAR HGB CONC 32.8 g/dl (32.0-36.5); MEAN CORPUSCULAR VOLUME 82.9 fl (80.0-96.0); MONO # 1.5 10^3/uL (0.0-0.8); MONO % 9.6 % (2.0-8.0); NEUTROPHILS % 78.2 % (36.0-66.0); PLATELET COUNT, AUTOMATED 475 10^3/uL (150-450); RED BLOOD COUNT 4.45 10^6/uL (4.30-6.10); WHITE BLOOD COUNT 15.4 10^3/uL (4.0-10.0)
[2025-01-21 12:05] LABS: MAGNESIUM LEVEL 1.8 MG/DL (1.8-2.4)
[2025-01-21 12:06] LABS: ALBUMIN 3.4 G/DL (3.2-5.2); ALKALINE PHOSPHATASE 90 U/L (40-129); ALT/SGPT < 9 U/L (7.0-40); AST/SGOT 12 U/L (<34); BILIRUBIN,TOTAL 0.7 MG/DL (0.3-1.2); BLOOD UREA NITROGEN 17 MG/DL (9-23); CALCIUM LEVEL 9.2 MG/DL (8.3-10.6); CARBON DIOXIDE LEVEL 24 MMOL/L (20-31); CHLORIDE LEVEL 98 MMOL/L (98-107); CREATININE FOR GFR 1.43 MG/DL (0.70-1.30); GLUCOSE, FASTING 163 MG/DL (74-106); POTASSIUM SERUM 4.1 MMOL/L (3.5-5.1); SODIUM LEVEL 134 MMOL/L (136-145); TOTAL PROTEIN 7.1 G/DL (5.7-8.2)
[2025-01-21 12:09] LABS: FREE T4 1.89 NG/DL (0.89-1.76); THYROID STIMULATING HORMONE 2.553 uIU/ML (0.55-4.78)
[2025-01-21 12:11] LABS: FREE T3 2.4 PG/ML (2.3-4.2)
[2025-01-22 11:30] VITALS: BP 110/69; O2SAT 98
[2025-01-22] MEDS: PROCHLORPERAZINE 5MG TAB PO SCH (12:03)
[2025-01-22] MEDS: dexAMETHasone 4 MG TAB PO SCH (12:03)
[2025-01-22] MEDS: ATROPINE SULF 0.4 MG/ML 1 ML VIAL IVP PRN (12:51)
[2025-01-22] MEDS: SODIUM CHLORIDE 0.9% INJ 10 ML SYR IV PRN (12:54)
[2025-02-04] MEDS: SODIUM CHLORIDE 0.9% INJ 10 ML SYR IV PRN (10:46)
[2025-02-04 10:59] LABS: BASO # 0.1 10^3/uL (0.0-0.2); BASO % 1.2 % (0.0-1.0); EOS # 0.2 10^3/uL (0.0-0.5); EOS % 1.4 % (0.0-3.0); HEMATOCRIT 34.9 % (42.0-52.0); HEMOGLOBIN 11.1 g/dl (13.5-17.5); LYMPH # 1.2 10^3/uL (1.5-5.0); LYMPH % 10.4 % (24.0-44.0); MEAN CORPUSCULAR HEMOGLOBIN 26.1 pg (27.0-33.0); MEAN CORPUSCULAR HGB CONC 31.8 g/dl (32.0-36.5); MEAN CORPUSCULAR VOLUME 81.9 fl (80.0-96.0); MONO % 8.4 % (2.0-8.0); NEUTROPHILS # 9.2 10^3/uL (1.5-8.5); NEUTROPHILS % 78.1 % (36.0-66.0); PLATELET COUNT, AUTOMATED 478 10^3/uL (150-450); RED BLOOD COUNT 4.26 10^6/uL (4.30-6.10); WHITE BLOOD COUNT 11.8 10^3/uL (4.0-10.0)
[2025-02-04 11:47] LABS: ALBUMIN 2.7 G/DL (3.2-5.2); BILIRUBIN,TOTAL 0.4 MG/DL (0.3-1.2); CREATININE FOR GFR 1.62 MG/DL (0.70-1.30); GLOMERULAR FILTRATION RATE 46.5 (>49); MAGNESIUM LEVEL 2.1 MG/DL (1.8-2.4); POTASSIUM SERUM 4.4 MMOL/L (3.5-5.1); TOTAL PROTEIN 6.5 G/DL (5.7-8.2)
[2025-02-04 11:51] LABS: FREE T4 1.82 NG/DL (0.89-1.76); THYROID STIMULATING HORMONE 2.628 uIU/ML (0.55-4.78)
[2025-02-05 10:46] VITALS: BP 130/76; O2SAT 96
[2025-02-05] MEDS: NS (Normal Saline) 0.9% 1,000 ML IV ONE (11:27)
[2025-02-05] MEDS: PROCHLORPERAZINE 5MG TAB PO SCH (11:54)
[2025-02-05] MEDS: dexAMETHasone 4 MG TAB PO SCH (11:55)
[2025-02-05] MEDS: PEMBROLIZUMAB 200 MG in NS 100 ML IV SCH (13:32)
[2025-02-05] MEDS: SODIUM CHLORIDE 0.9% INJ 10 ML SYR IV PRN (14:04)
[2025-02-11] MEDS: SODIUM CHLORIDE 0.9% INJ 10 ML SYR IV PRN (11:01)
[2025-02-11 11:09] LABS: BASO # 0.1 10^3/uL (0.0-0.2); BASO % 1.5 % (0.0-1.0); EOS # 0.1 10^3/uL (0.0-0.5); EOS % 1.5 % (0.0-3.0); HEMATOCRIT 34.2 % (42.0-52.0); HEMOGLOBIN 10.9 g/dl (13.5-17.5); LYMPH # 1.2 10^3/uL (1.5-5.0); LYMPH % 12.7 % (24.0-44.0); MEAN CORPUSCULAR HEMOGLOBIN 25.7 pg (27.0-33.0); MEAN CORPUSCULAR HGB CONC 31.9 g/dl (32.0-36.5); MEAN CORPUSCULAR VOLUME 80.7 fl (80.0-96.0); MONO # 0.8 10^3/uL (0.0-0.8); MONO % 8.1 % (2.0-8.0); NEUTROPHILS # 7.1 10^3/uL (1.5-8.5); NEUTROPHILS % 75.3 % (36.0-66.0); PLATELET COUNT, AUTOMATED 414 10^3/uL (150-450); RED BLOOD COUNT 4.24 10^6/uL (4.30-6.10); WHITE BLOOD COUNT 9.4 10^3/uL (4.0-10.0)
[2025-02-11 11:40] LABS: ALBUMIN 2.6 G/DL (3.2-5.2); BILIRUBIN,TOTAL 0.3 MG/DL (0.3-1.2); CALCIUM LEVEL 9.1 MG/DL (8.3-10.6); CREATININE FOR GFR 1.32 MG/DL (0.70-1.30); GLOMERULAR FILTRATION RATE 59.5 (>49); POTASSIUM SERUM 4.2 MMOL/L (3.5-5.1); TOTAL PROTEIN 6.1 G/DL (5.7-8.2)
[2025-02-12] MEDS: MAG SULF 1GM/100ML (MAG RUN) 100 ML IV ONE (11:23)
[2025-02-12] MEDS: PROCHLORPERAZINE 5MG TAB PO SCH (11:23)
[2025-02-12] MEDS: dexAMETHasone 4 MG TAB PO SCH (11:23)
[2025-02-12 12:16] VITALS: BP_SYST 119; BP_SYST 128; BP_DIAS 77; BP_DIAS 78; O2SAT 96
[2025-02-12] MEDS: SODIUM CHLORIDE 0.9% INJ 10 ML SYR IV PRN (13:21)
[2025-02-25 11:34] LABS: BASO # 0.2 10^3/uL (0.0-0.2); BASO % 1.8 % (0.0-1.0); EOS # 0.5 10^3/uL (0.0-0.5); EOS % 5.7 % (0.0-3.0); LYMPH # 1.3 10^3/uL (1.5-5.0); LYMPH % 13.4 % (24.0-44.0); MEAN CORPUSCULAR HGB CONC 32.3 g/dl (32.0-36.5); MEAN CORPUSCULAR VOLUME 80.5 fl (80.0-96.0); MONO # 0.8 10^3/uL (0.0-0.8); MONO % 8.5 % (2.0-8.0); NEUTROPHILS # 6.5 10^3/uL (1.5-8.5); NEUTROPHILS % 69.7 % (36.0-66.0); PLATELET COUNT, AUTOMATED 388 10^3/uL (150-450); RED BLOOD COUNT 3.85 10^6/uL (4.30-6.10); WHITE BLOOD COUNT 9.3 10^3/uL (4.0-10.0)
[2025-02-25 12:09] LABS: MAGNESIUM LEVEL 1.7 MG/DL (1.8-2.4)
[2025-02-25 12:13] LABS: ALBUMIN 2.7 G/DL (3.2-5.2); BILIRUBIN,TOTAL 0.5 MG/DL (0.3-1.2); CALCIUM LEVEL 8.9 MG/DL (8.3-10.6); CREATININE FOR GFR 1.51 MG/DL (0.70-1.30); GLOMERULAR FILTRATION RATE 50.6 (>49); TOTAL PROTEIN 6.5 G/DL (5.7-8.2)
[2025-02-26 09:31] VITALS: BP 99/66; O2SAT 94
[2025-02-26 10:23] LABS: THYROID STIMULATING HORMONE 7.398 uIU/ML (0.55-4.78)
[2025-02-26 10:24] LABS: FREE T4 1.5 NG/DL (0.89-1.76)
[2025-02-26 10:26] LABS: FREE T3 1.9 PG/ML (2.3-4.2)
[2025-02-26] MEDS: NS (Normal Saline) 0.9% 1,000 ML IV ONE (10:31)
[2025-02-26] MEDS: MAG SULF 1GM/100ML (MAG RUN) 100 ML IV ONE (10:32)
[2025-02-26] MEDS: SODIUM CHLORIDE 0.9% INJ 10 ML SYR IV PRN (11:37)
[2025-03-03 11:55] LABS: BASO # 0.4 10^3/uL (0.0-0.2); BASO % 3.9 % (0.0-1.0); EOS # 0.6 10^3/uL (0.0-0.5); EOS % 6.7 % (0.0-3.0); HEMATOCRIT 32.3 % (42.0-52.0); HEMOGLOBIN 10.2 g/dl (13.5-17.5); LYMPH # 0.9 10^3/uL (1.5-5.0); LYMPH % 10.6 % (24.0-44.0); MEAN CORPUSCULAR HEMOGLOBIN 25.8 pg (27.0-33.0); MEAN CORPUSCULAR HGB CONC 31.6 g/dl (32.0-36.5); MEAN CORPUSCULAR VOLUME 81.6 fl (80.0-96.0); MONO # 0.8 10^3/uL (0.0-0.8); MONO % 8.4 % (2.0-8.0); NEUTROPHILS # 6.2 10^3/uL (1.5-8.5); NEUTROPHILS % 69.6 % (36.0-66.0); PLATELET COUNT, AUTOMATED 410 10^3/uL (150-450); RED BLOOD COUNT 3.96 10^6/uL (4.30-6.10); WHITE BLOOD COUNT 8.9 10^3/uL (4.0-10.0)
[2025-03-03 12:29] LABS: ALBUMIN 2.9 G/DL (3.2-5.2); ALKALINE PHOSPHATASE 94 U/L (40-129); ALT/SGPT < 9 U/L (7.0-40); AST/SGOT 12 U/L (<34); BILIRUBIN,TOTAL 0.5 MG/DL (0.3-1.2); BLOOD UREA NITROGEN 19 MG/DL (9-23); CALCIUM LEVEL 9.2 MG/DL (8.3-10.6); CARBON DIOXIDE LEVEL 24 MMOL/L (20-31); CHLORIDE LEVEL 101 MMOL/L (98-107); CREATININE FOR GFR 1.33 MG/DL (0.70-1.30); GLUCOSE, FASTING 112 MG/DL (74-106); POTASSIUM SERUM 4.3 MMOL/L (3.5-5.1); SODIUM LEVEL 135 MMOL/L (136-145); TOTAL PROTEIN 6.8 G/DL (5.7-8.2)
[2025-03-04 09:00] VITALS: BP 96/98; O2SAT 96
[2025-03-04] MEDS: NS (Normal Saline) 0.9% 1,000 ML IV ONE (10:00)
[2025-03-04 10:12] LABS: FREE T4 1.97 NG/DL (0.89-1.76); MAGNESIUM LEVEL 1.7 MG/DL (1.8-2.4); THYROID STIMULATING HORMONE 7.242 uIU/ML (0.55-4.78)
[2025-03-04] MEDS: MAG SULF 1GM/100ML (MAG RUN) 100 ML IV ONE (10:47)
[2025-03-04] MEDS: SODIUM CHLORIDE 0.9% INJ 10 ML SYR IV PRN (11:53)
[2025-03-05 11:30] VITALS: BP 107/69; O2SAT 95
[2025-03-05] MEDS: FOSAPREPITANT 150 MG, VIAL 2 BAG 13MM ADAPTER 1 EACH in NS 250 ML IV SCH (11:55)
[2025-03-05] MEDS: PALONOSETRON 0.25 MG/5 ML VIAL IV SCH (11:56)
[2025-03-05] MEDS: dexAMETHasone 4 MG/ML 1 ML VIAL IV SCH (11:56)
[2025-03-05] MEDS: SODIUM CHLORIDE 0.9% INJ 10 ML SYR IV PRN (13:43)
[2025-03-12 10:50] VITALS: BP 122/81; O2SAT 97
[2025-03-12 11:08] LABS: BASO # 0.1 10^3/uL (0.0-0.2); BASO % 0.6 % (0.0-1.0); EOS # 0.2 10^3/uL (0.0-0.5); EOS % 1.9 % (0.0-3.0); HEMATOCRIT 29.7 % (42.0-52.0); HEMOGLOBIN 9.4 g/dl (13.5-17.5); LYMPH # 0.6 10^3/uL (1.5-5.0); LYMPH % 6.1 % (24.0-44.0); MEAN CORPUSCULAR HEMOGLOBIN 25.8 pg (27.0-33.0); MEAN CORPUSCULAR HGB CONC 31.6 g/dl (32.0-36.5); MEAN CORPUSCULAR VOLUME 81.4 fl (80.0-96.0); MONO # 0.4 10^3/uL (0.0-0.8); MONO % 4.2 % (2.0-8.0); NEUTROPHILS % 86.5 % (36.0-66.0); PLATELET COUNT, AUTOMATED 129 10^3/uL (150-450); RED BLOOD COUNT 3.65 10^6/uL (4.30-6.10); WHITE BLOOD COUNT 10.4 10^3/uL (4.0-10.0)
[2025-03-12 11:44] LABS: ALBUMIN 2.8 G/DL (3.2-5.2); BILIRUBIN,TOTAL 0.3 MG/DL (0.3-1.2); CREATININE FOR GFR 3.75 MG/DL (0.70-1.30); POTASSIUM SERUM 5.7 MMOL/L (3.5-5.1); TOTAL PROTEIN 6.7 G/DL (5.7-8.2)
[2025-03-25 10:52] LABS: BASO # 0.2 10^3/uL (0.0-0.2); BASO % 1.9 % (0.0-1.0); EOS # 0.2 10^3/uL (0.0-0.5); EOS % 1.9 % (0.0-3.0); HEMATOCRIT 30.4 % (42.0-52.0); HEMOGLOBIN 9.5 g/dl (13.5-17.5); LYMPH # 1.3 10^3/uL (1.5-5.0); LYMPH % 11.3 % (24.0-44.0); MEAN CORPUSCULAR HEMOGLOBIN 26.1 pg (27.0-33.0); MEAN CORPUSCULAR HGB CONC 31.3 g/dl (32.0-36.5); MEAN CORPUSCULAR VOLUME 83.5 fl (80.0-96.0); MONO # 1.4 10^3/uL (0.0-0.8); MONO % 12.2 % (2.0-8.0); NEUTROPHILS # 8.2 10^3/uL (1.5-8.5); NEUTROPHILS % 71.8 % (36.0-66.0); PLATELET COUNT, AUTOMATED 602 10^3/uL (150-450); RED BLOOD COUNT 3.64 10^6/uL (4.30-6.10); WHITE BLOOD COUNT 11.3 10^3/uL (4.0-10.0)
[2025-03-25 11:28] LABS: ALBUMIN 2.5 G/DL (3.2-5.2); BILIRUBIN,TOTAL 0.4 MG/DL (0.3-1.2); CALCIUM LEVEL 8.9 MG/DL (8.3-10.6); CREATININE FOR GFR 1.18 MG/DL (0.70-1.30); GLOMERULAR FILTRATION RATE 68.1 (>49); POTASSIUM SERUM 4.1 MMOL/L (3.5-5.1); TOTAL PROTEIN 6.6 G/DL (5.7-8.2)
[2025-03-26 08:03] VITALS: BP 112/75; O2SAT 93
[2025-03-28 14:22] LABS: BASO # 0.3 10^3/uL (0.0-0.2); BASO % 2.1 % (0.0-1.0); EOS # 0.2 10^3/uL (0.0-0.5); EOS % 1.6 % (0.0-3.0); HEMATOCRIT 31.9 % (42.0-52.0); LYMPH # 1.3 10^3/uL (1.5-5.0); LYMPH % 9.9 % (24.0-44.0); MEAN CORPUSCULAR HEMOGLOBIN 26.5 pg (27.0-33.0); MEAN CORPUSCULAR HGB CONC 31.3 g/dl (32.0-36.5); MEAN CORPUSCULAR VOLUME 84.6 fl (80.0-96.0); MONO # 1.6 10^3/uL (0.0-0.8); NEUTROPHILS # 9.9 10^3/uL (1.5-8.5); NEUTROPHILS % 73.2 % (36.0-66.0); PLATELET COUNT, AUTOMATED 507 10^3/uL (150-450); RED BLOOD COUNT 3.77 10^6/uL (4.30-6.10); WHITE BLOOD COUNT 13.5 10^3/uL (4.0-10.0)
[2025-03-28 14:58] LABS: ALBUMIN 2.6 G/DL (3.2-5.2); CALCIUM LEVEL 8.6 MG/DL (8.3-10.6); POTASSIUM SERUM 4.3 MMOL/L (3.5-5.1); TOTAL PROTEIN 6.9 G/DL (5.7-8.2)
[2025-03-28 15:12] LABS: BILIRUBIN,TOTAL 0.4 MG/DL (0.3-1.2); CREATININE FOR GFR 1.18 MG/DL (0.70-1.30); GLOMERULAR FILTRATION RATE 68.1 (>49)
[~2025-03-31] VITALS: Ht 177.8 cm; Wt 65.3 kg
[~2025-03-31 10:01] MED LIST changes: +AMOX875T2 PO; +ATROPINE SULF 0.4 MG/ML 1 ML VIAL IVP PRN; +AUGM500T34 PO; +FERR324T21 PO; +FOSAPREPITANT 150 MG, VIAL 2 BAG 13MM ADAPTER 1 EACH in NS 250 ML IV SCH; -LIDOCAINE 2% 100MG/5ML SDV (FOR ANES.) As Ordered ONE; +MACR100C43 PO; -MIDAZOLAM INJ 2MG/2ML VIAL As Ordered ONE; +NITR100C2 PO; +NS 50 ML IV PRN; -ONDANSETRON 4MG 2ML VIAL As Ordered ONE; +OXYB5TAB14 PO; +PALONOSETRON 0.25 MG/5 ML VIAL IV SCH; +PROCHLORPERAZINE 5MG TAB PO SCH; +PYRI1TAB5 PO; +SODIUM CHLORIDE 0.9% INJ 10 ML SYR IV PRN; +dexAMETHasone 4 MG TAB PO SCH; +dexAMETHasone 4 MG/ML 1 ML VIAL IV SCH; -fentaNYL 100 MCG/2 ML INJECTION As Ordered ONE; -propofoL 200 MG/20 ML VIAL As Ordered ONE
[2025-03-31 10:06] VITALS: BP 86/56; O2SAT 98
[2025-03-31] MEDS: NS (Normal Saline) 0.9% 1,000 ML IV ONE (11:00)
[2025-03-31 12:56] VITALS: BP 104/64
[2025-03-31] MEDS: SODIUM CHLORIDE 0.9% INJ 10 ML SYR IV PRN (13:00)
== END 2025-04-07 12:00 | disposition expired ==
LOC: M ONCM 04-07 12:00
PROVIDERS: ATTEND Internal Medicine Hematology & Oncology
DX: Z51.11 Encounter for antineoplastic chemotherapy (principal); C67.9 Malignant neoplasm of bladder, unspecified; C78.7 Secondary malignant neoplasm of liver and intrahepatic bile duct; K76.89 Other specified diseases of liver; E27.9 Disorder of adrenal gland, unspecified; R59.0 Localized enlarged lymph nodes; D64.9 Anemia, unspecified; I10 Essential (primary) hypertension; E11.40 Type 2 diabetes mellitus with diabetic neuropathy, unspecified; I72.4 Aneurysm of artery of lower extremity; E03.8 Other specified hypothyroidism; L85.3 Xerosis cutis; E83.42 Hypomagnesemia; E87.6 Hypokalemia; R41.82 Altered mental status, unspecified; Z79.890 Hormone replacement therapy; Z79.84 Long term (current) use of oral hypoglycemic drugs; Z79.899 Other long term (current) drug therapy; Z87.891 Personal history of nicotine dependence; R53.1 Weakness; R63.0 Anorexia; L03.031 Cellulitis of right toe; N28.89 Other specified disorders of kidney and ureter; E03.9 Hypothyroidism, unspecified; R11.2 Nausea with vomiting, unspecified; E11.9 Type 2 diabetes mellitus without complications; R94.4 Abnormal results of kidney function studies; R60.0 Localized edema; R22.40 Localized swelling, mass and lump, unspecified lower limb; Z51.89 Encounter for other specified aftercare
CPT/HCPCS: 36415; 36591; 51702; 67159; 71046; 71260; 77336; 77412; 80048; 80053; 82728; 83550; 83735; 84154; 84439; 84443; 84481; 85025; 85027; 85610; 85730; 87086; 93306; 96360; 96361; 96365; 96366; 96367; 96368; 96375; 96411; 96413; 96417; 99285; G0463; J0461; J1100; J1453; J1642; J2405; J2469; J3475; J9045; J9177; J9201; J9271; Q9967